=== PATIENT | male | born 1975 ===

== ENCOUNTER 2017-04-13 17:06 | Emergency (ER) | payer OTHER ==
[2017-04-13] MEDS ORDERED: Sodium Chloride 0.9% 1,000 ML IV ONE (17:54)
[2017-04-13] MEDS ORDERED: Sodium Chloride 0.9% 1,000 ML ONE (18:21)
--- NOTE | 2017-04-13 18:27 | C.PDOC ---
History Of Present Illness 41 yr old male presents to the ER for alcohol intoxication. ROS is unable to be obtained due to the level of intoxication. Time Seen by Provider: 04/13/17 17:53 Chief Complaint (Nursing): Abdominal Pain History/Exam Limitations: intoxication Onset/Duration Of Symptoms: Unknown Modifying Factor(s): Alcohol Past Medical History Reviewed: Historical Data, Nursing Documentation, Vital Signs Vital Signs: Last Vital Signs Temp 98.2 F 04/13/17 17:14 Pulse 108 H 04/13/17 17:14 Resp 20 04/13/17 17:14 BP 122/81 04/13/17 17:14 Pulse Ox 96 04/13/17 18:28 - Medical History PMH: Pancreatitis Family History: States: No Known Family Hx - Social History Hx Alcohol Use: Yes Hx Substance Use: Yes - Immunization History Hx Tetanus Toxoid Vaccination: No Hx Influenza Vaccination: No Hx Pneumococcal Vaccination: No Review Of Systems Review Of Systems: ROS cannot be obtained secondary to pt's inabilty to answer questions. Physical Exam - Physical Exam Appears: Non-toxic, No Acute Distress, Other (No signs of trauma. ) Skin: Warm, Dry, No Rash Head: Atraumatic, Normacephalic Chest: Symmetrical, No Tenderness Cardiovascular: Rhythm Regular, No Murmur Respiratory: Normal Breath Sounds, No Rales, No Rhonchi, No Stridor, No Wheezing Extremity: Normal ROM, No Swelling Neurological/Psych: Oriented x3, Normal Speech, Normal Motor ED Course And Treatment - Laboratory Results Result Diagrams: 04/13/17 18:35 04/13/17 18:35 O2 Sat by Pulse Oximetry: 96 (RA) Pulse Ox Interpretation: Normal Medical Decision Making Medical Decision Making: PLAN: * Alcohol Serum * CBC * CMP * Pepcid IVP * Zofran IVP * Sodium Chloride IV Disposition - Disposition Disposition Time: 19:00 Condition: UNKNOWN Forms: [facility] (Libyan) - Clinical Impression Clinical Impression: Alcohol intoxication - Scribe Statement The provider has reviewed the documentation as recorded by the Emmyibnicki Larios Provider Attestation: All medical record entries made by the Scribe were at my direction and personally dictated by me. I have reviewed the chart and agree that the record accurately reflects my personal performance of the history, physical exam, medical decision making, and the department course for this patient. I have also personally directed, reviewed, and agree with the discharge instructions and disposition. Physician Patient Turnover Patient Signed Over To: Esteban King
[2017-04-13 18:43] LABS: BASO % 0.7 % (0.0-2.0); EOS # 0.4 K/uL (0.0-0.7); EOS % 6.5 % (0.0-4.0); HEMOGLOBIN 16.1 g/dL (12.0-18.0); LYMPH # 1.8 K/uL (1.0-4.3); LYMPH % 32.2 % (20.0-40.0); MEAN CELL VOLUME 94.1 fL (80.0-94.0); MEAN CORPUSCULAR HEMOGLOBIN 31.8 pg (27.0-31.0); MEAN CORPUSCULAR HGB CONC 33.8 g/dL (33.0-37.0); MEAN PLATELET VOLUME 7.7 fL (7.2-11.7); MONO # 0.3 K/uL (0.0-0.8); MONO % 5.8 % (0.0-10.0); NEUT # 3.1 K/uL (1.8-7.0); NEUT % 54.8 % (50.0-75.0); RBC 5.06 Mil/uL (4.40-5.90); WHITE BLOOD COUNT 5.6 K/uL (4.8-10.8)
[2017-04-13 18:58] LABS: GFR AFRICAN-AMERICAN > 60; GFR NON-AFRICAN AMERICAN > 60
[2017-04-13 18:59] LABS: ALB/GLOB RATIO 1.3 (1.0-2.1); ALT/SGPT 48 U/L (21-72); AST/SGOT 83 U/L (17-59); BLOOD UREA NITROGEN 10 mg/dL (9-20); CALCIUM 8.3 mg/dl (8.6-10.4); LIPASE 260 U/L (23-300)
[2017-04-14 05:51] LABS: BENZODIAZEPINES, UR NEGATIVE (NEGATIVE)
[2017-04-14 05:53] LABS: BARBITURATES, UR NEGATIVE (NEGATIVE)
[2017-04-14 05:55] LABS: OPIATES, UR NEGATIVE (NEGATIVE)
[2017-04-14 05:56] LABS: PHENCYCLIDINE, UR NEGATIVE (NEGATIVE)
[2017-04-14 10:32] VITALS: BP 118/70; PULSE 82; RESP 16; TEMP 98.2; O2SAT 100
== END 2017-04-14 10:31 | disposition home or self-care (01) ==
LOC: C.ER 17:06
DX: F10.129 Alcohol abuse with intoxication, unspecified (principal); Y90.8 Blood alcohol level of 240 mg/100 ml or more
CPT/HCPCS: 80053; 83690; 85025; 96361; 96374; 96375; 99285; G0480; J2405; J7040

== ENCOUNTER 2017-05-12 01:22 | Observation (INO) | payer SELFPAY ==
[2017-05-12 01:37] VITALS: RESP 20; TEMP 98.2
[2017-05-12 02:18] LABS: BASO % 0.9 % (0.0-2.0); EOS # 0.3 K/uL (0.0-0.7); EOS % 6.8 % (0.0-4.0); LYMPH # 1.8 K/uL (1.0-4.3); LYMPH % 37.5 % (20.0-40.0); MEAN CELL VOLUME 95.4 fL (80.0-94.0); MEAN CORPUSCULAR HEMOGLOBIN 31.8 pg (27.0-31.0); MEAN CORPUSCULAR HGB CONC 33.3 g/dL (33.0-37.0); MEAN PLATELET VOLUME 7.6 fL (7.2-11.7); MONO # 0.4 K/uL (0.0-0.8); MONO % 8.8 % (0.0-10.0); NRBC % 0.1 % (0.0-2.0); RED CELL DISTRIBUTION WIDTH 14.1 % (11.5-14.5); WHITE BLOOD COUNT 4.8 K/uL (4.8-10.8)
[2017-05-12 02:33] LABS: ALB/GLOB RATIO 1.4 (1.0-2.1); ALCOHOL SERUM 264 mg/dl (0-10); ALKALINE PHOSPHATASE 88 U/L (38-126); ALT/SGPT 67 U/L (21-72); AST/SGOT 81 U/L (17-59); BILIRUBIN,TOTAL 1.3 mg/dL (0.2-1.3); BLOOD UREA NITROGEN 13 mg/dL (9-20); CALCIUM 9.6 mg/dl (8.6-10.4); CARBON DIOXIDE 24 mmol/L (22-30); CHLORIDE 101 mmol/L (98-107); GFR AFRICAN-AMERICAN > 60; GLUCOSE,RANDOM 116 mg/dL (75-110); POTASSIUM 3.8 mmol/L (3.6-5.2); SODIUM 146 mmol/L (132-148)
--- NOTE | 2017-05-12 03:14 | C.PDOC ---
History Of Present Illness 41 year old male with a Hx of chronic alcoholism and chronic cocaine abuse who presents to the ER requesting detox. Patient also reports he has been experiencing RUQ pain and is concerned for his liver. Denies vomiting, diarrhea , or fever. Time Seen by Provider: 05/12/17 01:36 Chief Complaint (Nursing): Substance Abuse History Per: Patient History/Exam Limitations: no limitations Onset/Duration Of Symptoms: Hrs Current Symptoms Are (Timing): Still Present Suicide/Self Injury Attempted (Context): None Modifying Factor(s): Alcohol, Cocaine Associated Symptoms: denies: Depression, Suicidal Thoughts, Suicidal Plan Involuntary Hold By: None Recent travel outside of the [place]: No Past Medical History Reviewed: Historical Data, Nursing Documentation, Vital Signs Vital Signs: Last Vital Signs Temp 98.2 F 05/12/17 01:29 Pulse 152 H 05/12/17 01:29 Resp 20 05/12/17 01:29 BP 134/88 05/12/17 01:29 Pulse Ox 95 05/12/17 03:21 - Medical History PMH: Pancreatitis Surgical History: No Surg Hx Family History: States: Unknown Family Hx - Social History Hx Alcohol Use: Yes Hx Substance Use: Yes - Immunization History Hx Tetanus Toxoid Vaccination: No Hx Influenza Vaccination: No Hx Pneumococcal Vaccination: No Review Of Systems Constitutional: Negative for: Fever, Chills Gastrointestinal: Positive for: Abdominal Pain. Negative for: Nausea, Vomiting , Diarrhea Physical Exam - Physical Exam Appears: Non-toxic, No Acute Distress, Other (ETOH on breath) Skin: Normal Color, Warm, Dry, No Jaundice Head: Atraumatic, Normacephalic Oral Mucosa: Moist Chest: Symmetrical, No Tenderness Cardiovascular: Rhythm Regular, No Murmur Respiratory: Normal Breath Sounds, No Rales, No Rhonchi, No Wheezing Gastrointestinal/Abdominal: Soft, Tenderness (Minimal to RUQ) Back: No CVA Tenderness Neurological/Psych: Oriented x3, Normal Speech, Normal Cognition ED Course And Treatment - Laboratory Results Result Diagrams: 05/12/17 02:14 05/12/17 02:14 O2 Sat by Pulse Oximetry: 95 (Room air) Pulse Ox Interpretation: Normal Progress Note: Urinalysis and blood work ordered. Tylenol administered. 6 AM- Pt is AAO x 3, ambulatory with normal gait. Pt now denies pain. Labs reviewed and no acute findings. No detox beds are available and pt is advised to call Crisis unit for available detox beds. Disposition Counseled Patient/Family Regarding: Diagnosis, Need For Followup, Rx Given - Disposition Disposition: HOME/ ROUTINE Disposition Time: 06:01 Condition: STABLE Additional Instructions: Please Call Crisis at [phone] for available detox beds Return to ER if worse Instructions: Abuse of Alcohol (ED) Forms: [facility] (Estonian) - Clinical Impression Clinical Impression: Alcohol intoxication - Scribe Statement The provider has reviewed the documentation as recorded by the Scribnicki Montemayor All medical record entries made by the Emmyibnicki were at my direction and personally dictated by me. I have reviewed the chart and agree that the record accurately reflects my personal performance of the history, physical exam, medical decision making, and the department course for this patient. I have also personally directed, reviewed, and agree with the discharge instructions and disposition.
[2017-05-12 06:12] VITALS: BP 142/86; PULSE 78; O2SAT 99
== END 2017-05-12 06:09 | disposition home or self-care (01) ==
LOC: C.ER 01:22 → C.9OBSV 03:35
PROVIDERS: ADMIT Emergency Medicine; ATTEND Emergency Medicine
DX: F10.229 Alcohol dependence with intoxication, unspecified (principal); F14.10 Cocaine abuse, uncomplicated; R10.11 Right upper quadrant pain; Z87.19 Personal history of other diseases of the digestive system
CPT/HCPCS: 80053; 83690; 85025; 99283; G0378; G0480

== ENCOUNTER 2018-05-21 19:08 | Inpatient (IN) | payer MEDICAID ==
--- NOTE | 2018-05-21 20:11 | C.PDOC ---
History Of Present Illness Patient presents to the ER requesting detox from ETOH and cocaine, last use was earlier today. Denies suicidal or homicidal ideation. Time Seen by Provider: 05/21/18 20:11 Chief Complaint (Nursing): Substance Abuse History Per: Patient History/Exam Limitations: no limitations Onset/Duration Of Symptoms: Hrs Current Symptoms Are (Timing): Still Present Suicide/Self Injury Attempted (Context): None Modifying Factor(s): Alcohol, Cocaine Severity: None Pain Scale Rating Of: 0 Associated Symptoms: denies: Suicidal Thoughts, Other (Homicidal ideation) Involuntary Hold By: None Recent travel outside of the [place]: No Past Medical History Reviewed: Historical Data, Nursing Documentation, Vital Signs Vital Signs: Last Vital Signs Temp 98.4 F 05/21/18 19:36 Pulse 83 05/21/18 19:36 Resp 16 05/21/18 19:36 BP 116/68 05/21/18 19:36 Pulse Ox 97 05/21/18 20:32 - Medical History PMH: Hiatal Hernia, Pancreatitis Denies: Diabetes, Hepatitis, HIV, HTN, Seizures, Sexually Transmitted Disease Family History: States: No Known Family Hx - Social History Hx Alcohol Use: Yes Hx Substance Use: Yes - Immunization History Hx Tetanus Toxoid Vaccination: No Hx Influenza Vaccination: No Hx Pneumococcal Vaccination: No Review Of Systems Constitutional: Negative for: Fever, Chills Cardiovascular: Negative for: Chest Pain, Palpitations Respiratory: Negative for: Cough, Shortness of Breath Gastrointestinal: Negative for: Abdominal Pain Psych: Negative for: Suicidal ideation, Other (Homicidal ideation) Physical Exam - Physical Exam Appears: Non-toxic Skin: Warm, Dry Head: Normacephalic Oral Mucosa: Moist Chest: Symmetrical, No Tenderness Cardiovascular: Rhythm Regular Respiratory: No Rales, No Rhonchi, No Wheezing Gastrointestinal/Abdominal: Soft, No Tenderness Neurological/Psych: Oriented x3 ED Course And Treatment - Laboratory Results Result Diagrams: 05/21/18 22:12 05/21/18 22:12 O2 Sat by Pulse Oximetry: 97 (Room air) Pulse Ox Interpretation: Normal Progress Note: Blood work and urinalysis ordered. Crisis notified. Disposition Discussed With : Sapna Alfredo Comment: accepted the pt on her service and took over the care at 11:08 PM Doctor Will See Patient In The: Hospital Counseled Patient/Family Regarding: Studies Performed, Diagnosis - Disposition Disposition: HOSPITALIZED Disposition Time: 20:11 Condition: FAIR Forms: [facility] (Malian) - POA Present On Arrival: None - Clinical Impression Clinical Impression: Drug abuse, Alcohol use disorder - Scribe Statement The provider has reviewed the documentation as recorded by the Scribe Fernandez Montemayor All medical record entries made by the Scribe were at my direction and personally dictated by me. I have reviewed the chart and agree that the record accurately reflects my personal performance of the history, physical exam, medical decision making, and the department course for this patient. I have also personally directed, reviewed, and agree with the discharge instructions and disposition. Decision To Admit - Pt Status Changed To: Hospital Disposition Of: Inpatient - Admit Certification Admit to Inpatient:: After my assessment, the patient will require hospitalization for at least two midnights. This is because of the severity of symptoms shown, intensity of services needed, and/or the medical risk in this patient being treated as an outpatient. - InPatient: Physician Admission Certification: I certify that this patient requires 2 or more midnights of care for the following reason:: After my assessment, the patient will require hospitalization for at least two midnights. This is because of the severity of symptoms shown, intensity of services needed, and/or the medical risk in this patient being treated as an outpatient. - . Bed Request Type: Detox Admitting Physician: Sapna Alfredo Patient Diagnosis: Drug abuse, Alcohol use disorder
[2018-05-21 22:16] LABS: BASO % 0.7 % (0.0-2.0); EOS # 0.4 K/uL (0.0-0.7); EOS % 10.1 % (0.0-4.0); HEMOGLOBIN 15.6 g/dL (12.0-18.0); LYMPH # 1.8 K/uL (1.0-4.3); LYMPH % 39.4 % (20.0-40.0); MEAN CELL VOLUME 97.4 fL (80.0-94.0); MEAN CORPUSCULAR HEMOGLOBIN 33.8 pg (27.0-31.0); MEAN CORPUSCULAR HGB CONC 34.8 g/dL (33.0-37.0); MEAN PLATELET VOLUME 6.8 fL (7.2-11.7); MONO # 0.3 K/uL (0.0-0.8); MONO % 6.3 % (0.0-10.0); NEUT # 1.9 K/uL (1.8-7.0); NEUT % 43.5 % (50.0-75.0); NRBC % 0.1 % (0.0-2.0); RBC 4.6 Mil/uL (4.40-5.90); WHITE BLOOD COUNT 4.5 K/uL (4.8-10.8)
[2018-05-21 22:19] LABS: SQUAMOUS EPITHIAL 1 /hpf (0-5); URINE BILIRUBIN NEGATIVE (NEGATIVE); URINE CLARITY Clear (Clear); URINE COLOR Straw (YELLOW); URINE GLUCOSE (UA) NORMAL (Normal); URINE LEUKOCYTE ESTERASE NEG Leu/uL (Negative); URINE PROTEIN NEGATIVE (NEGATIVE); URINE UROBILINOGEN NORMAL mg/dL (0.2-1.0)
[2018-05-21 22:27] LABS: URINE BLOOD TRACE (NEGATIVE)
[2018-05-21 22:28] LABS: ALB/GLOB RATIO 1.6 (1.0-2.1)
[2018-05-21 22:32] LABS: ALBUMIN 4.9 g/dL (3.5-5.0); ALT/SGPT 28 U/L (21-72); AST/SGOT 57 U/L (17-59); BLOOD UREA NITROGEN 12 mg/dL (9-20); CALCIUM 9.3 mg/dl (8.6-10.4); GFR NON-AFRICAN AMERICAN > 60
[2018-05-21 22:40] LABS: BARBITURATES, UR NEGATIVE (NEGATIVE); BENZODIAZEPINES, UR NEGATIVE (NEGATIVE); OPIATES, UR NEGATIVE (NEGATIVE); PHENCYCLIDINE, UR NEGATIVE (NEGATIVE)
--- NOTE | 2018-05-22 01:20 | PCM.BM ---
<Maria A Tapia - Last Filed: 05/22/18 01:20> Treatment Plan Problems - Problems identified on initial assessmt Alcohol Dependence Date Initiated: 05/22/18 Time Initiated: 01:20 Assessment reference: NA Status: Active Treatment assets and liabiliti Patient Assests: ADL independent Patient Liabilities: substance abuse - Milieu Protocol Maintain good personal hygiene: daily Encourage regular showers, daily Remind patient to perform daily oral care, daily Assist patient to perform ADL's Maintain personal safety: every shift Educate patient to report safety concerns to staff, every shift Monitor environment for contraband/sharps Medication safety: Monitor for expected outcome, potential side effects: every shift, Assess barriers to learning: every shift, Assess readiness for medication education: every shift <Darling Garcia - Last Filed: 05/23/18 12:44> - Diagnosis (1) Alcohol use disorder Status: Acute Interventions: 05/23/18 12:43 * Assess 7x/week regarding severity of withdrawal * Educate regarding risks, benefits, side effects and alternatives of medications * Use Motivational Interviewing for abstinence * Use CBT for relapse prevention * Medication management for withdrawal symptoms * Encourage medication assisted treatment *
[2018-05-22] MEDS: Pantoprazole 20 mg EC Tab PO SCH (09:56)
[2018-05-22] MEDS: Multiple Vitamins Tab PO SCH (09:56)
--- NOTE | 2018-05-22 16:15 | PCM.PSYCH ---
Initial Psychiatric Evaluation - Initial Psychiatric Evaluation Type of Admission: Voluntary Legal Status: Capacity Chief Complaint (in patient's own words): Im drinking a lot History of Present Illness and Precipitating Events: Pt is a 39 y/o LM who is single and currently homeless and unemployed. Pt does not have any children. Pt came into the [facility] yesterday seeking detox for EtOH. Pt began drinking alcohol 26 years ago. Pt drinks on average a 24 pack of beer per day, last usage was 12 beers yesterday. Pt also reported of using 20grams of cocaine on Saturday but only buys cocaine when he has money. Pt cannot remember when he started sniffing cocaine but does on average 20 grams worth, last usage being 3 days ago. Pt denies hx of OD or previous detox attempts. Pt denies depressed mood, feelings of guilt, fatigue, concentration problems, decreased appetite, anhedonia, SI/HI. Pt denies racing thoughts, manic episodes. Pt denies auditory, visual or tactile hallucinations Pt denies smoking. Denies heroin, benzo, marijuana or any other substance use. Psych Hx: unremarkable Traumatic Hx: unremarkable Family psych Hx: 2 uncles who abused alcohol Medical Hx: bilateral hernia and recurrent pancreatitis exacerbated by drinking. He still has pain and is at risk for pancreatitis. he will be monitored Legal Hx: unremarkable Current Medications: Active Medications Generic Name Dose Route Start Last Admin Trade Name Freq PRN Reason Stop Dose Admin Chlordiazepoxide 25 mg 05/22/18 10:00 05/22/18 15:54 Librium PO 05/27/18 09:59 25 mg Q6H KIRA Administration Taper Chlordiazepoxide 25 mg 05/22/18 08:58 Librium PO Q4H PRN Alcohol Withdrawal Clonidine HCl 0.1 mg 05/22/18 08:58 Catapres PO Q4H PRN Symptoms of alcohol withdrawl Folic Acid 1 mg 05/22/18 10:00 05/22/18 09:55 Folic Acid PO 1 mg DAILY KIRA Administration Gabapentin 300 mg 05/22/18 10:00 05/22/18 09:55 Neurontin PO 300 mg BID KIRA Administration Hydroxyzine HCl 50 mg 05/22/18 08:59 Atarax PO Q6H PRN Anxiety Ibuprofen 600 mg 05/22/18 08:59 Motrin Tab PO Q6H PRN Pain, moderate (4-7) Multivitamins 1 tab 05/22/18 10:00 05/22/18 09:56 Hexavitamin PO 1 tab DAILY KIRA Administration Pantoprazole Sodium 20 mg 05/22/18 10:00 05/22/18 09:56 Protonix Ec Tab PO 20 mg DAILY KIRA Administration Thiamine HCl 100 mg 05/22/18 10:00 05/22/18 09:56 Vitamin B1 Tab PO 100 mg DAILY KIRA Administration Trazodone HCl 100 mg 05/22/18 22:00 Desyrel PO HS KIRA Past Psychiatric History - Past Psychiatric History Previous Treatment History: None Pertinent Medical Hx (Current Medical&Sleep Prob, Allergies): Allergies Allergy/AdvReac Type Severity Reaction Status Date / Time aspirin Allergy Verified 05/21/18 19:41 seafood Allergy Uncoded 05/21/18 19:41 No Known Home Med 04/13/17 Review of Systems - Psychiatric Psychiatric: Abnormal Sleep Pattern, Anxiety, Difficulty Concentrating, Irritability. absent: Auditory Hallucinations, Depression, Hallucinations, Homicidal Ideation, Suicidal Ideation, Visual Hallucinations, Tactile Hallucinations Mental Status Examination - Personal Presentation Personal Presentation: Looks stated age - Affect Affect: Broad - Motor Activity Motor Activity: Calm - Reliability in Providing Information Reliability in Providing Information: Good - Speech Speech: Organized - Mood Mood: Neutral - Formal Thought Process Formal Thought Process: No Impairment - Obsessions/Compulsions Obsessions: No Compulsions: No - Cognitive Functions Orientation: Person, Place, Situation, Time Sensorium: Alert Attention/Concentration: Easily distracted Estimate of Intelligence: Average Judgement: Intact, as evidence by: Insight regarding need for hospitalization Memory: Recent intact, as evidence by: Ability to recall events of the day, Remote intact, as evidenced by: Abilit to recall sig. life events - Risk Risk: Seizure, Withdrawal, Diminished functioning - Strength & Assets Inventory Strength & Assets Inventory: Cooperative - Limitations Limitations: Living alone DSM 5 DX - DSM 5 DSM 5 Diagnosis: EtOH use disorder, severe EtOH withdrawal Cocaine use disorder, moderate - Recommended/Plan of Treatment Treatment Recommendations and Plan of Treatment: start Librium taper for EtOH detox As need medications All risks, benefits and alternatives of the meds discussed, and the pt agreed and understood.~ Attend groups and activities Individual therapy daily Psychoeducation and support daily Encourage compliance with meds and after care Refer to outpatient program~ Teach healthy lifestyle methods, i.e. diet, exercise, meditation 32 min Projected ELOS: 4-5 days Prognosis: good w treatment - Smoking Cessation Smoking Cessation Initiated: Yes
[2018-05-23] MEDS: Multiple Vitamins Tab PO SCH (09:37)
[2018-05-23] MEDS: Pantoprazole 20 mg EC Tab PO SCH (09:37)
--- NOTE | 2018-05-23 14:16 | PCM.PYCHPN ---
Psychiatric Progress Note - Psychiatric Progress Note Patient seen today, length of contact: 16 min Patient Chief Complaint: Im anxious" Problems Identified/Issues Discussed: The pt is seen, chart reviewed, case discussed with staff. The pt is compliant with medications and reports no side-effects. Symptoms are improving but needs more time to stabilize. Pt attends groups and activities. Support given, psycho-education provided. After care discussed. Medication Change: Yes (detox changes daily) Medical Record Reviewed: Yes Mental Status Examination - Cognitive Function Orientation: Person, Place, Situation, Time Memory: Intact Attention: WNL Concentration: Poor Association: WNL Fund of Knowledge: WNL - Mood Mood: Neutral - Affect Affect: Broad - Speech Speech: Appropriate - Formal Thought Process Formal Thought Process: No Impairment - Suicidal Ideation Suicidal Ideation: No - Homicidal Ideation Homicidal Ideation: No Goal/Treatment Plan - Goal/Treatment Plan Need for Continued Stay: Discharge may exacerbated symptoms, Severe functional impairment Progress Toward Problem(s) and Goals/Treatment Plan: Librium taper for EtOH detox As need medications All risks, benefits and alternatives of the meds discussed, and the pt agreed and understood.~ Attend groups and activities Individual therapy daily Psychoeducation and support daily Encourage compliance with meds and after care Refer to outpatient program~ Teach healthy lifestyle methods, i.e. diet, exercise, meditation
[2018-05-24] MEDS: Pantoprazole 20 mg EC Tab PO SCH (09:19)
[2018-05-24] MEDS: Multiple Vitamins Tab PO SCH (10:11)
--- NOTE | 2018-05-24 16:53 | PCM.PYCHPN ---
Psychiatric Progress Note - Psychiatric Progress Note Patient seen today, length of contact: 16 min Patient Chief Complaint: Im better" Problems Identified/Issues Discussed: The pt is seen, chart reviewed, case discussed with staff. Support and psychoeducation given, CBT and OK used briefly No new symptoms reported, improving slowly and needs more time No SEs from medications, risks discussed. After care discussed Medication Change: Yes (detox changes daily) Medical Record Reviewed: Yes Mental Status Examination - Cognitive Function Orientation: Person, Place, Situation, Time Memory: Intact Attention: WNL Concentration: Poor Association: WNL Fund of Knowledge: WNL - Mood Mood: Neutral - Affect Affect: Broad - Speech Speech: Appropriate - Formal Thought Process Formal Thought Process: No Impairment - Suicidal Ideation Suicidal Ideation: No - Homicidal Ideation Homicidal Ideation: No Goal/Treatment Plan - Goal/Treatment Plan Need for Continued Stay: Discharge may exacerbated symptoms, Severe functional impairment Progress Toward Problem(s) and Goals/Treatment Plan: Librium taper for EtOH detox As need medications All risks, benefits and alternatives of the meds discussed, and the pt agreed and understood.~ Attend groups and activities Individual therapy daily Psychoeducation and support daily Encourage compliance with meds and after care Refer to outpatient program~ Teach healthy lifestyle methods, i.e. diet, exercise, meditation
[2018-05-25] MEDS: Multiple Vitamins Tab PO SCH (09:17)
[2018-05-25] MEDS: Pantoprazole 20 mg EC Tab PO SCH (09:17)
--- NOTE | 2018-05-25 09:28 | PCM.PYCHPN ---
Psychiatric Progress Note - Psychiatric Progress Note Patient seen today, length of contact: 16 min Medication Change: Yes (detox changes daily) Medical Record Reviewed: Yes Mental Status Examination - Cognitive Function Orientation: Person, Place, Situation, Time Memory: Intact Attention: WNL Concentration: Poor Association: WNL Fund of Knowledge: WNL - Mood Mood: Neutral - Affect Affect: Broad - Speech Speech: Appropriate - Formal Thought Process Formal Thought Process: No Impairment - Suicidal Ideation Suicidal Ideation: No - Homicidal Ideation Homicidal Ideation: No Goal/Treatment Plan - Goal/Treatment Plan Need for Continued Stay: Discharge may exacerbated symptoms, Severe functional impairment Progress Toward Problem(s) and Goals/Treatment Plan: EtOH use disorder, severe EtOH withdrawal Cocaine use disorder, moderate start Librium taper for EtOH detox As need medications All risks, benefits and alternatives of the meds discussed, and the pt agreed and understood.~ Attend groups and activities Individual therapy daily Psychoeducation and support daily Encourage compliance with meds and after care Refer to outpatient program~ Teach healthy lifestyle methods, i.e. diet, exercise, meditation
[2018-05-26 08:50] VITALS: BP 114/65; PULSE 98; RESP 18; TEMP 97.7; O2SAT 97
--- NOTE | 2018-05-26 08:50 | PCM.PYCHDC ---
Mental Status Examination - Mental Status Examination Orientation: Person Discharge Summary - Discharge Note Consultations:: List each consultation separately and include: 1. Reason for request. 2. Findings. 3. Follow-up Summary of Hospital Course include:: 1. Description of specific treatment plan utilized for patients during their course of treatmen. 2. Summarize the time- course for resolution of acute symptoms and/or regressed behaviors. 3. Describe issues identified and worked on during hospitalization. 4. Describe medication utilized. 5. Describe medical problems identified and treated. 6. Reassessment of suicide risk Summary of Hospital Course: Pt is a 39 y/o LM who is single and currently homeless and unemployed. Pt does not have any children. Pt came into the [facility] yesterday seeking detox for EtOH. Pt began drinking alcohol 26 years ago. Pt drinks on average a 24 pack of beer per day, last usage was 12 beers yesterday. Pt also reported of using 20grams of cocaine on Saturday but only buys cocaine when he has money. Pt cannot remember when he started sniffing cocaine but does on average 20 grams worth, last usage being 3 days ago. Pt denies hx of OD or previous detox attempts. Pt denies depressed mood, feelings of guilt, fatigue, concentration problems, decreased appetite, anhedonia, SI/HI. Pt denies racing thoughts, manic episodes. Pt denies auditory, visual or tactile hallucinations Pt denies smoking. Denies heroin, benzo, marijuana or any other substance use. Psych Hx: unremarkable Traumatic Hx: unremarkable Family psych Hx: 2 uncles who abused alcohol Medical Hx: bilateral hernia and recurrent pancreatitis exacerbated by drinking. He still has pain and is at risk for pancreatitis. he will be monitored Legal Hx: unremarkable He went to [facility] rehab. - Diagnosis (1) Alcohol use disorder Current Visit: Yes Status: Acute - Final Diagnosis (DSM 5) Condition upon Discharge: FAIR Disposition: HOME/ ROUTINE Follow-up Treatment Plan: Librium taper for EtOH detox As need medications All risks, benefits and alternatives of the meds discussed, and the pt agreed and understood.~ Attend groups and activities Individual therapy daily Psychoeducation and support daily Encourage compliance with meds and after care Refer to outpatient program~ Teach healthy lifestyle methods, i.e. diet, exercise, meditation Prescriptions/Medication Reconciliation: Pantoprazole [Protonix EC Tab] 20 mg PO DAILY #30 ect traZODone [Desyrel] 100 mg PO HS #30 tab
[2018-05-26] MEDS: Multiple Vitamins Tab PO SCH (09:09)
[2018-05-26] MEDS: Pantoprazole 20 mg EC Tab PO SCH (09:09)
== END 2018-05-26 10:45 | disposition home or self-care (01) | DRG 470 ==
LOC: C.ER 19:08 → C.7D 23:10
PROVIDERS: ADMIT Psychiatry & Neurology Psychiatry; ATTEND Psychiatry & Neurology Psychiatry
PROC: HZ2ZZZZ Detoxification Services for Substance Abuse Treatment (ICD-10-PCS; principal; 2018-05-21)
PROC: HZ59ZZZ Individual Psychotherapy for Substance Abuse Treatment, Supportive (ICD-10-PCS; 2018-05-21)
PROC: HZ46ZZZ Group Counseling for Substance Abuse Treatment, Psychoeducation (ICD-10-PCS; 2018-05-21)
DX: Y90.8 Blood alcohol level of 240 mg/100 ml or more (principal); F14.20 Cocaine dependence, uncomplicated; F10.230 Alcohol dependence with withdrawal, uncomplicated; K86.0 Alcohol-induced chronic pancreatitis; Z59.0 Homelessness

== ENCOUNTER 2018-06-05 00:17 | Inpatient (IN) | payer MEDICAID ==
--- NOTE | 2018-06-05 00:45 | C.PDOC ---
History Of Present Illness 42 y/o male with hx etoh abuse, presents to ED with swelling and pain to left lower leg. pt seen in ED on 05.30 for left knee and ankle pain s/p fall with abrasions on both knees from a fall prior to that. pt denies fevers. pt denies drinking today. pt is poor historian. Time Seen by Provider: 06/05/18 00:33 Chief Complaint (Nursing): Abnormal Skin Integrity History Per: Patient History/Exam Limitations: intoxication Current Symptoms Are (Timing): Worse Location Of Injury: Left: Leg Quality Of Symptoms: Painful, Swollen Severity: Moderate Past Medical History Reviewed: Historical Data, Nursing Documentation, Vital Signs Vital Signs: Last Vital Signs Temp 97.8 F 06/05/18 00:25 Pulse 110 H 06/05/18 00:25 Resp 20 06/05/18 00:25 BP 126/82 06/05/18 00:25 Pulse Ox 97 06/05/18 00:25 - Medical History PMH: Hiatal Hernia, Pancreatitis Denies: Diabetes, Hepatitis, HIV, HTN, Seizures, Sexually Transmitted Disease Other PMH: alcohol abuse - [facility] Procedures DETOXIFICATION SERVICES FOR SUBSTANCE ABUSE TREATMENT (05/21/18) GROUP HUMAN RESOURCES ASSISTANT MANAGER FOR SUBSTANCE ABUSE TREATMENT, PSYCHOEDUCATION (05/21/18) INDIV PSYCHOTHERAPY FOR SUBSTANCE ABUSE TREATMENT, SUPPORT (05/21/18) Family History: States: Unknown Family Hx - Social History Hx Alcohol Use: Yes Hx Substance Use: No - Immunization History Hx Tetanus Toxoid Vaccination: Yes (6 years) Hx Influenza Vaccination: No Hx Pneumococcal Vaccination: No Review Of Systems Constitutional: Negative for: Fever, Chills Cardiovascular: Negative for: Chest Pain Respiratory: Negative for: Cough, Shortness of Breath Gastrointestinal: Negative for: Nausea, Vomiting, Abdominal Pain Skin: Positive for: Bruising (left medial knee), Other (scabs bilteral anterior tibia) Neurological: Negative for: Weakness, Numbness Physical Exam - Physical Exam Appears: Non-toxic, No Acute Distress Skin: Warm, Dry, Ecchymosis (left medial knee), Other (scabs to both anterior tibia) Head: Atraumatic, Normacephalic Eye(s): bilateral: Normal Inspection (small but reactibe) Cardiovascular: Other (tachycardic) Respiratory: No Decreased Breath Sounds, No Wheezing Gastrointestinal/Abdominal: Bowel Sounds, Soft, No Tenderness Extremity: Other (left lower ext with swelling and warmth to knee, with likely suprapatellar effusion, able to flex knee. warmth and pitting edema extending all along [place] to foot. bilateral feet with moist, malodorous white cracked skin between all toes and to soles of feet. ) Pulses: Left Dorsalis Pedis: Normal, Right Dorsalis Pedis: Normal Neurological/Psych: Oriented x3, Normal Speech, Normal Cognition ED Course And Treatment - Laboratory Results Result Diagrams: 06/05/18 01:05 06/05/18 01:05 O2 Sat by Pulse Oximetry: 97 Medical Decision Making Medical Decision Making: pt with etoh abuse with cellullitis to left lower leg with overlying fungal infection for admission for iv antiboitcs. discussed with Dr Lora, will admit to his service. , [phone] Lora at [phone]; several pages to medical biller made; await call back [phone] resident aware to see patientr Disposition Discussed With DrAna: Josue Lora Jr. Doctor Will See Patient In The: Hospital - Disposition Disposition: HOSPITALIZED Disposition Time: 03:03 Condition: GOOD - Clinical Impression Clinical Impression: Cellulitis of left lower leg, Fungal infection of foot, Alcohol intoxication
[2018-06-05 01:15] LABS: BASO % 0.5 % (0.0-2.0); EOS # 0.4 K/uL (0.0-0.7); EOS % 5.1 % (0.0-4.0); HEMOGLOBIN 15.1 g/dL (12.0-18.0); LYMPH # 1.7 K/uL (1.0-4.3); LYMPH % 19.7 % (20.0-40.0); MEAN CELL VOLUME 97.1 fL (80.0-94.0); MEAN CORPUSCULAR HEMOGLOBIN 33.1 pg (27.0-31.0); MEAN CORPUSCULAR HGB CONC 34.1 g/dL (33.0-37.0); MEAN PLATELET VOLUME 7.1 fL (7.2-11.7); MONO # 0.6 K/uL (0.0-0.8); MONO % 6.9 % (0.0-10.0); NEUT # 5.8 K/uL (1.8-7.0); NEUT % 67.8 % (50.0-75.0); RBC 4.57 Mil/uL (4.40-5.90); RED CELL DISTRIBUTION WIDTH 15.6 % (11.5-14.5); WHITE BLOOD COUNT 8.5 K/uL (4.8-10.8)
[2018-06-05 01:32] LABS: ALB/GLOB RATIO 1.6 (1.0-2.1); ALBUMIN 4.8 g/dL (3.5-5.0); ALT/SGPT 41 U/L (21-72); AST/SGOT 82 U/L (17-59); BLOOD UREA NITROGEN 17 mg/dL (9-20); GFR NON-AFRICAN AMERICAN > 60
[2018-06-05] MEDS ORDERED: Piperacillin/Tazobact 3.375 GM in Sodium Chloride 100 ML IVPB STA (01:46)
[2018-06-05] MEDS ORDERED: Piperacillin/Tazobact 3.375 gm 100 ML IVPB ONE (02:45)
[2018-06-05 04:03] LABS: GRANULAR CAST 8 /lpf (0-1); SQUAMOUS EPITHIAL < 1 /hpf (0-5); URINE BILIRUBIN NEGATIVE (NEGATIVE); URINE BLOOD 1+ (NEGATIVE); URINE CLARITY Clear (Clear); URINE COLOR Yellow (YELLOW); URINE GLUCOSE (UA) NORMAL (Normal); URINE HYALINE CAST 0-2 /lpf (0-2); URINE LEUKOCYTE ESTERASE NEG Leu/uL (Negative); URINE PROTEIN NEGATIVE (NEGATIVE); URINE UROBILINOGEN NORMAL mg/dL (0.2-1.0)
[2018-06-05 04:11] LABS: BARBITURATES, UR NEGATIVE (NEGATIVE); OPIATES, UR NEGATIVE (NEGATIVE); PHENCYCLIDINE, UR NEGATIVE (NEGATIVE)
[2018-06-05 04:36] LABS: BENZODIAZEPINES, UR POSITIVE (NEGATIVE)
[2018-06-05] MEDS ORDERED: Bacitracin 500 Units/gm Oint Foilpak UD TOP ONE (04:52)
--- NOTE | 2018-06-05 04:52 | CP.PCM.HP ---
History of Present Illness - History of Present Illness History of Present Illness: History and Physical - Dr Lora Service CC: Left Knee pain HPI: Patient is a 42 year old male with past medical history of alcohol abuse, pancreatitis, hernia who presents to the hospital for worsening left knee pain. Patient is a poor historian. Patient states that last Saturday he was playing basketball when he fell. He was seen in the ED on 05/30/18 and Left knee and Left ankle x rays were negative for any fractures. Patient states that his left knee pain has been progressively getting worse for the past two days. He al so reports swelling. 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 He states that the pain has started to impair his gait. Pain is only localized to the left knee. He tried taking Motrin at home with minimal relief. He denies headaches, dizziness, cp, palpitations, sob, chest pain, abdominal pain, urinary symptoms, changes in bowel habits, numbness/tingling. ED Course: Zosyn 3.375mg IVPB x 1, Ketoconazole 2% cream Allergies: Aspirin Medications: Denies Medical History: Alcohol abuse, pancreatitis, bilateral hernia Surgical History: Denies Social History: Admits to drinking alcohol occasionally, Last drink was last Saturday, denies tobacco or drug use Family History: Denies Present on Admission - Present on Admission Any Indicators Present on Admission: No Past Patient History - Infectious Disease Hx of Infectious Diseases: None - Past Social History Smoking Status: Never Smoked - CARDIAC Hx Hypertension: No - PULMONARY Hx Tuberculosis: No - NEUROLOGICAL Hx Seizures: No - HEMATOLOGICAL/ONCOLOGICAL Hx Human Immunodeficiency Virus (HIV): No - MUSCULOSKELETAL/RHEUMATOLOGICAL Hx Falls: No - GASTROINTESTINAL Hx Pancreatitis: Yes - GENITOURINARY/GYNECOLOGICAL Hx Sexually Transmitted Disorders: No - PSYCHIATRIC Hx Substance Use: No - SURGICAL HISTORY Hx Surgeries: No - ANESTHESIA Hx Anesthesia: No Meds Allergies/Adverse Reactions: Allergies Allergy/AdvReac Type Severity Reaction Status Date / Time aspirin Allergy Verified 06/05/18 00:27 seafood Allergy Uncoded 06/05/18 00:27 Physical Exam - Constitutional Appears: No Acute Distress - Head Exam Head Exam: ATRAUMATIC, NORMAL INSPECTION, NORMOCEPHALIC - Eye Exam Eye Exam: EOMI, Normal appearance Pupil Exam: NORMAL ACCOMODATION - ENT Exam ENT Exam: Mucous Membranes Moist - Respiratory Exam Respiratory Exam: Clear to Auscultation Bilateral, NORMAL BREATHING PATTERN. absent: Rales, Rhonchi, Wheezes - Cardiovascular Exam Cardiovascular Exam: REGULAR RHYTHM, +S1, +S2 - GI/Abdominal Exam GI & Abdominal Exam: Normal Bowel Sounds, Soft. absent: Guarding, Rebound, Rigid, Tenderness - Extremities Exam Additional comments: Left lower extremity: decreased ROM 2/2 to pain, knee is warm, tender to palpation, erythematous, edematous, bruising noted on medial aspect of knee, + healing abrasion, swelling appreciated from knee down to ankle, no calf tenderness, pedal pulses intact, sensation intact Right lower extremity: +healing abrasion, no calf tenderness, pedal pulses intact, sensation intact - Back Exam Back exam: NORMAL INSPECTION - Neurological Exam Neurological exam: Alert, CN II-XII Intact, Oriented x3 - Psychiatric Exam Psychiatric exam: Normal Affect, Normal Mood - Skin Skin Exam: Dry, Normal Color, Warm Results - Vital Signs Recent Vital Signs: Last Vital Signs Temp 97.9 F 06/05/18 03:56 Pulse 98 H 06/05/18 03:56 Resp 18 06/05/18 03:56 BP 118/74 06/05/18 03:56 Pulse Ox 97 06/05/18 04:12 - Labs Result Diagrams: 06/05/18 01:05 06/05/18 01:05 Labs: Laboratory Results - last 24 hr 06/05/18 06/05/18 06/05/18 01:05 01:05 03:49 WBC 8.5 D RBC 4.57 Hgb 15.1 Hct 44.4 MCV 97.1 H MCH 33.1 H MCHC 34.1 RDW 15.6 H Plt Count 282 MPV 7.1 L Neut % (Auto) 67.8 Lymph % (Auto) 19.7 L [place] % (Auto) 6.9 Eos % (Auto) 5.1 H Baso % (Auto) 0.5 Neut # (Auto) 5.8 Lymph # (Auto) 1.7 [place] # (Auto) 0.6 Eos # (Auto) 0.4 Baso # (Auto) 0.0 Sodium 146 Potassium 4.1 Chloride 105 Carbon Dioxide 23 Anion Gap 22 H BUN 17 Creatinine 0.9 Est GFR ( Amer) > 60 Est GFR (Non-Af Amer) > 60 Random Glucose 103 Calcium 9.0 Magnesium 1.9 Total Bilirubin 0.9 AST 82 H D ALT 41 Alkaline Phosphatase 99 Total Protein 7.9 Albumin 4.8 Globulin 3.1 Albumin/Globulin Ratio 1.6 Urine Color Yellow Urine Clarity Clear Urine pH 5.0 Ur Specific [place] 1.017 Urine Protein Negative Urine Glucose (UA) Normal Urine Ketones Negative Urine Blood 1+ H Urine Nitrate Negative Urine Bilirubin Negative Urine Urobilinogen Normal Ur Leukocyte Esterase Neg Urine WBC (Auto) 1 Urine RBC (Auto) 1 Ur Squamous Epith Cells < 1 Hyaline Casts 0-2 Granular Casts (Auto) 8 Urine Opiates Screen Urine Methadone Screen Ur Barbiturates Screen Ur Phencyclidine Scrn Ur Amphetamines Screen U Benzodiazepines Scrn U Oth Cocaine Metabols U Cannabinoids Screen Alcohol, Quantitative 289 H 06/05/18 03:49 WBC RBC Hgb Hct MCV MCH MCHC RDW Plt Count MPV Neut % (Auto) Lymph % (Auto) [place] % (Auto) Eos % (Auto) Baso % (Auto) Neut # (Auto) Lymph # (Auto) [place] # (Auto) Eos # (Auto) Baso # (Auto) Sodium Potassium Chloride Carbon Dioxide Anion Gap BUN Creatinine Est GFR ( Amer) Est GFR (Non-Af Amer) Random Glucose Calcium Magnesium Total Bilirubin AST ALT Alkaline Phosphatase Total Protein Albumin Globulin Albumin/Globulin Ratio Urine Color Urine Clarity Urine pH Ur Specific [place] Urine Protein Urine Glucose (UA) Urine Ketones Urine Blood Urine Nitrate Urine Bilirubin Urine Urobilinogen Ur Leukocyte Esterase Urine WBC (Auto) Urine RBC (Auto) Ur Squamous Epith Cells Hyaline Casts Granular Casts (Auto) Urine Opiates Screen Negative Urine Methadone Screen Negative Ur Barbiturates Screen Negative Ur Phencyclidine Scrn Negative Ur Amphetamines Screen Negative U Benzodiazepines Scrn Positive U Oth Cocaine Metabols Positive H U Cannabinoids Screen Negative Alcohol, Quantitative Assessment & Plan - Assessment and Plan (Free Text) Assessment: A/P: Patient is a 42 year old male with past medical history of alcohol abuse, pancreatitis, and hernia who presents to the emergency dept for worsening left knee pain and swelling. Left knee pain -Stable, afebrile -Left knee x ray taken, awaiting official read -Will continue Zosyn 3.375 Q6H for possible cellulitis -Knee CT, venous dopplers ordered -Motrin 600mg PO TID prn pain Alcohol Intoxication/Alcohol Abuse -Alcohol level on admission was 289 -Patient was recently admitted requesting detox from alcohol and cocaine -Per Psych note: he drinks on average 24 pack beer/day -UDS positive for cocaine and benzodiazapine -Start Folic acid, Multivitamins, Thiamine -Librium 25mg PO Q4H prn symptoms of alcohol withdrawal -CIWA protocol, seizure/aspiration precautions Elevated LFTs -AST/ALT 82/41 -Likely due to alcohol use -Continue to monitor GI/DVT ppx -Protonix 40mg IVP daily -Lovenox 40 SC daily Plan discussed with Dr Guido Caldera DO PGY-2
[2018-06-05] MEDS ORDERED: Piperacill/Tazo 3.375gm in Dex 3.375 GM/50 ML BAG IVPB SCH (07:30)
--- NOTE | 2018-06-05 07:52 | RAD ---
Date of service: 06/05/2018 PROCEDURE: Left Knee Radiographs. HISTORY: Pain. COMPARISON: None. FINDINGS: BONES: No fracture or lytic lesion appreciated. JOINTS: Mild medial femoral tibial compartment osteoarthritis. JOINT EFFUSION: Present OTHER FINDINGS: Pre patellar bone and tendon soft tissue diffuse increased density and swelling-; a concomitant prepatellar bursitis probable. IMPRESSION: Joint effusion; prepatellar bursitis probable No fracture or lytic lesion. Osteoarthrosis-mild
[2018-06-05 07:59] VITALS: RESP 20
[2018-06-05] MEDS: Piperacill/Tazo 3.375gm in Dex 3.375 GM/50 ML BAG IVPB SCH ×3 (08:13→20:07)
[2018-06-05] MEDS: Multiple Vitamins Tab PO SCH (09:49)
[2018-06-05] MEDS: Enoxaparin 40 mg Syringe SC SCH (09:49)
--- NOTE | 2018-06-05 12:41 | CT ---
Date of service: 06/05/2018. PROCEDURE: CT of the left knee. HISTORY: Pain and swelling after fall. COMPARISON: Comparison made with plain film radiographs left knee 05/31/2018 TECHNIQUE: Contiguous helical/transaxial images of the left hip were obtained. Coronal and sagittal reformats were generated.. Note that a small BB marker was placed over the area of perceived pain This CT exam was performed using one or more of the following dose reduction techniques: Automated exposure control, adjustment of the mA and/or kV according to patient size, and/or use of iterative reconstruction technique. Radiation dose: Total DLP = 367.21 mGy-cm FINDINGS: BONES: Unremarkable. No fracture or focal lesion.. Significant degenerative osteoarthritis SOFT TISSUES: There is mild prepatellar soft tissue swelling extends superiorly to just above the level of the patella and inferiorly to the level of the tibial tubercle region. Swelling extends medially over the distal distal medial femur and proximal medial tibia.. Suspect trace suprapatellar joint effusion IMPRESSION: No evidence of acute displaced fracture nor dislocation. There is mild anterior soft tissue swelling as described.. Suspect trace suprapatellar joint effusion.
[2018-06-05 14:09] LABS: BASO % 0.7 % (0.0-2.0); EOS # 0.2 K/uL (0.0-0.7); EOS % 4.1 % (0.0-4.0); HEMOGLOBIN 14.4 g/dL (12.0-18.0); LYMPH # 0.7 K/uL (1.0-4.3); LYMPH % 13.7 % (20.0-40.0); MEAN CELL VOLUME 98.1 fL (80.0-94.0); MEAN CORPUSCULAR HEMOGLOBIN 33.5 pg (27.0-31.0); MEAN CORPUSCULAR HGB CONC 34.1 g/dL (33.0-37.0); MEAN PLATELET VOLUME 7.7 fL (7.2-11.7); MONO # 0.4 K/uL (0.0-0.8); MONO % 7.7 % (0.0-10.0); NEUT # 3.8 K/uL (1.8-7.0); NEUT % 73.8 % (50.0-75.0); RBC 4.29 Mil/uL (4.40-5.90); RED CELL DISTRIBUTION WIDTH 15.5 % (11.5-14.5); WHITE BLOOD COUNT 5.1 K/uL (4.8-10.8)
[2018-06-05 14:16] LABS: PROTHROMBIN TIME 10.6 SECONDS (9.7-12.2)
[2018-06-05 14:26] LABS: ALB/GLOB RATIO 1.4 (1.0-2.1); ALBUMIN 3.9 g/dL (3.5-5.0); ALT/SGPT 36 U/L (21-72); AST/SGOT 56 U/L (17-59); BLOOD UREA NITROGEN 16 mg/dL (9-20); CALCIUM 9.4 mg/dl (8.6-10.4); GFR NON-AFRICAN AMERICAN > 60
--- NOTE | 2018-06-05 14:44 | CP.PCM.PN ---
Subjective - Date & Time of Evaluation Date of Evaluation: 06/05/18 Time of Evaluation: 14:44 - Subjective Subjective: Augustin Cohen PGY-1, Medicine progress note for Dr. Lora Objective - Vital Signs/Intake and Output Vital Signs (last 24 hours): Temp Pulse Resp BP Pulse Ox 98.1 F 102 H 20 110/63 96 06/05/18 07:57 06/05/18 07:57 06/05/18 07:57 06/05/18 07:57 06/05/18 07:57 - Medications Medications: Current Medications Chlordiazepoxide (Librium) 25 mg PO Q4H PRN PRN Reason: Alcohol Withdrawal Enoxaparin Sodium (Lovenox) 40 mg SC DAILY [facility] Last Admin: 06/05/18 09:49 Dose: 40 mg Folic Acid (Folic Acid) 1 mg PO DAILY [facility] Last Admin: 06/05/18 09:49 Dose: 1 mg Piperacillin Sod/Tazobactam Sod (Zosyn 3.375 Gm Iv Premix) 3.375 gm in 50 mls @ 100 mls/hr IVPB Q6H [facility]; Protocol Last Admin: 06/05/18 13:30 Dose: 100 mls/hr Ibuprofen (Motrin Tab) 600 mg PO TID PRN PRN Reason: Pain, moderate (4-7) Last Admin: 06/05/18 13:27 Dose: 600 mg Multivitamins (Hexavitamin) 1 tab PO DAILY [facility] Last Admin: 06/05/18 09:49 Dose: 1 tab Pantoprazole Sodium (Protonix Inj) 40 mg IVP DAILY [facility] Last Admin: 06/05/18 09:50 Dose: 40 mg Thiamine HCl (Vitamin B1 Tab) 100 mg PO DAILY [facility] Last Admin: 06/05/18 09:49 Dose: 100 mg - Labs Labs: 06/05/18 14:00 06/05/18 14:00 PT 10.6 SECONDS (9.7-12.2) 06/05/18 14:00 INR 1.0 06/05/18 14:00 APTT 39 SECONDS (21-34) H 06/05/18 14:00
[2018-06-06] MEDS: Piperacill/Tazo 3.375gm in Dex 3.375 GM/50 ML BAG IVPB SCH ×4 (02:48→19:46)
[2018-06-06 07:28] LABS: BASO % 0.7 % (0.0-2.0); EOS # 0.3 K/uL (0.0-0.7); EOS % 6.9 % (0.0-4.0); HEMOGLOBIN 15.4 g/dL (12.0-18.0); LYMPH # 0.9 K/uL (1.0-4.3); MEAN CELL VOLUME 98.1 fL (80.0-94.0); MEAN CORPUSCULAR HEMOGLOBIN 34.1 pg (27.0-31.0); MEAN CORPUSCULAR HGB CONC 34.8 g/dL (33.0-37.0); MEAN PLATELET VOLUME 8.1 fL (7.2-11.7); MONO # 0.4 K/uL (0.0-0.8); MONO % 8.6 % (0.0-10.0); NEUT # 2.9 K/uL (1.8-7.0); NEUT % 64.8 % (50.0-75.0); NRBC % 0.1 % (0.0-2.0); RBC 4.52 Mil/uL (4.40-5.90); RED CELL DISTRIBUTION WIDTH 15.3 % (11.5-14.5); WHITE BLOOD COUNT 4.5 K/uL (4.8-10.8)
[2018-06-06 07:53] LABS: ALB/GLOB RATIO 1.4 (1.0-2.1); ALT/SGPT 38 U/L (21-72); AST/SGOT 57 U/L (17-59); BLOOD UREA NITROGEN 12 mg/dL (9-20); CALCIUM 9.3 mg/dl (8.6-10.4); GFR NON-AFRICAN AMERICAN > 60
[2018-06-06] MEDS: Enoxaparin 40 mg Syringe SC SCH (09:58)
[2018-06-06] MEDS: Multiple Vitamins Tab PO SCH (09:58)
--- NOTE | 2018-06-06 12:13 | VASCLAB ---
Date of service: 06/05/2018 PROCEDURE: Lower Extremity Venous Duplex Exam. HISTORY: r/o DVT PRIORS: None. TECHNIQUE: Bilateral common femoral, femoral, popliteal and posterior tibial, peroneal and great saphenous veins were evaluated. Flow was assessed with color Doppler, compressibility, assessment of phasic flow and augmentation response. Report prepared by Fernandez Castillo, BS, RVT FINDINGS: RIGHT: 1. Common Femoral Vein: 1.1. Compressibility - Fully compressible: Thrombus - None : Flow - Phasic: Augmentation -Normal: Reflux - None. 2. Femoral Vein: 2.1. Compressibility - Fully compressible: Thrombus - None : Flow - Phasic: Augmentation -Normal: Reflux - None. 3. Popliteal Vein: 3.1. Compressibility - Fully compressible: Thrombus - None : Flow - Phasic: Augmentation -Normal: Reflux - None. 4. Posterior Tibial Vein: 4.1. Compressibility - Fully compressible: Thrombus - None: Flow - Phasic: Augmentation -Normal: Reflux - None. 5. Peroneal Vein: 5.1. Compressibility - Fully compressible: Thrombus - None: Flow - Phasic: Augmentation -Normal: Reflux - None. 6. Great Saphenous Vein: 6.1. Compressibility - Fully compressible: Thrombus - None: Flow - Phasic: Augmentation - Normal: Reflux - None. LEFT: 1. Common Femoral Vein: 1.1. Compressibility - Fully compressible: Thrombus - None: Flow - Phasic: Augmentation -Normal: Reflux - None. 2. Femoral Vein: 2.1. Compressibility - Fully compressible: Thrombus - None: Flow - Phasic: Augmentation -Normal: Reflux - None. 3. Popliteal Vein: 3.1. Compressibility - Fully compressible: Thrombus - None : Flow - Phasic: Augmentation -Normal: Reflux - None. 4. Posterior Tibial Vein: 4.1. Compressibility - Fully compressible: Thrombus - None: Flow - Phasic: Augmentation -Normal: Reflux - None. 5. Peroneal Vein: 5.1. Compressibility - Fully compressible: Thrombus - None: Flow - Phasic: Augmentation -Normal: Reflux - None. 6. Great Saphenous Vein: 6.1. Compressibility - Fully compressible: Thrombus - None: Flow - Phasic: Augmentation - Normal: Reflux - None. OTHER FINDINGS: Right: None significant. Left: None significant. IMPRESSION: Right: No evidence of deep or superficial vein thrombosis of the right lower extremity. Normal valve function noted of the right side. Left: No evidence of deep or superficial vein thrombosis of the left lower extremity. Normal valve function noted of the left side.
--- NOTE | 2018-06-06 13:29 | CP.PCM.PN ---
Subjective - Date & Time of Evaluation Date of Evaluation: 06/06/18 Time of Evaluation: 13:28 - Subjective Subjective: Augustin Cohen PGY-1, Medicine progress note for Dr. Lora Pt seen and examined at bedside. Pt reports that his left knee pain is impro ving, reports resolution of left ankle pain. No acute events overnight. Pt reports that he has been had 6 episodes of brown liquid stool for over th epast 24 hours, nonbloody, nonbililous. Pt denies fever, chills, dizziness, weakness, chest pain, sob, abdominal pain, n/v. A 12-point ROS was reviewed and is otherwise unremarkable Objective - Vital Signs/Intake and Output Vital Signs (last 24 hours): Temp Pulse Resp BP Pulse Ox 98.6 F 81 20 130/56 L 95 06/06/18 08:00 06/06/18 08:00 06/06/18 08:00 06/06/18 08:00 06/06/18 10:00 Intake and Output: 06/06/18 06/06/18 06:59 18:59 Intake Total 1040 Balance 1040 - Medications Medications: Current Medications Chlordiazepoxide (Librium) 25 mg PO Q4H PRN PRN Reason: Alcohol Withdrawal Enoxaparin Sodium (Lovenox) 40 mg SC DAILY [facility] Last Admin: 06/06/18 09:58 Dose: 40 mg Folic Acid (Folic Acid) 1 mg PO DAILY [facility] Last Admin: 06/06/18 09:59 Dose: 1 mg Piperacillin Sod/Tazobactam Sod (Zosyn 3.375 Gm Iv Premix) 3.375 gm in 50 mls @ 100 mls/hr IVPB Q6H [facility]; Protocol Last Admin: 06/06/18 08:54 Dose: 100 mls/hr Ibuprofen (Motrin Tab) 600 mg PO TID PRN PRN Reason: Pain, moderate (4-7) Last Admin: 06/05/18 13:27 Dose: 600 mg Multivitamins (Hexavitamin) 1 tab PO DAILY [facility] Last Admin: 06/06/18 09:58 Dose: 1 tab Pantoprazole Sodium (Protonix Inj) 40 mg IVP DAILY [facility] Last Admin: 06/06/18 09:57 Dose: 40 mg Pneumococcal Polyvalent Vaccine (Pneumovax 23 Vaccine) 0.5 ml IM .ONCE ONE Stop: 06/07/18 10:01 Thiamine HCl (Vitamin B1 Tab) 100 mg PO DAILY [facility] Last Admin: 06/06/18 09:59 Dose: 100 mg - Labs Labs: 06/06/18 06:51 06/06/18 06:51 PT 10.6 SECONDS (9.7-12.2) 06/05/18 14:00 INR 1.0 06/05/18 14:00 APTT 39 SECONDS (21-34) H 06/05/18 14:00 - Constitutional Appears: Non-toxic, No Acute Distress - Head Exam Head Exam: ATRAUMATIC, NORMAL INSPECTION - Eye Exam Eye Exam: EOMI, Normal appearance - ENT Exam ENT Exam: Mucous Membranes Moist - Neck Exam Neck Exam: Normal Inspection - Respiratory Exam Respiratory Exam: Clear to Ausculation Bilateral, NORMAL BREATHING PATTERN. absent: Rales, Rhonchi, Wheezes, Respiratory Distress - Cardiovascular Exam Cardiovascular Exam: REGULAR RHYTHM, +S1, +S2 - GI/Abdominal Exam GI & Abdominal Exam: Soft, Normal Bowel Sounds. absent: Distended, Firm, Guardi ng, Rigid, Tenderness - Extremities Exam Extremities Exam: Normal Capillary Refill. absent: Calf Tenderness, Full ROM (Left lower extremity: decreased ROM 2/2 to pain) Additional comments: (-) tremors on outstretched hands Left lower extremity: (+) moderate tendernous to palpation, erythematous, wth ecchymosis to the medial aspect of the knee, edematous; (+) healing abrasion, swelling extends slightly behind the knee, but not involving mid [place] or mid thigh (-) calf tenderness, (+) pedal pulse intact, (+) decreased sensation at the areas of swelling, (-) pallor, (-) cold to touch Right lower extremity: (+) healing abrasion, no calf tenderness, pedal pulse intact, sensation intact - Back Exam Back Exam: NORMAL INSPECTION - Neurological Exam Neurological Exam: Alert, Normal Gait, Oriented x3 - Psychiatric Exam Psychiatric exam: Normal Affect, Normal Mood - Skin Skin Exam: Dry, Normal Color, Warm Assessment and Plan - Assessment and Plan (Free Text) Assessment: This is a 42 year old male with past medical history of alcohol abuse, pancreatitis, and hernia who presents to the emergency dept for worsening left knee pain and swelling. Left knee pain - Pain is improving, afebrile - Left knee x ray shows joint effusion, prepatellar bursitis probable. No fract ure or lytic lesion. Mild osteoarthritis. - Will continue Zosyn 3.375 Q6H for possible cellulitis - will discontinue zosyn on discharge and start Doxycycline 100 mg BID for 10 days - Pt given 1 dose of Vancomycin 1g IVPB yesterday - Knee CT is read as no evidence of acute displaced fracture nor dislocation There is mild anterior soft tissue swelling (see report). Suspect trace suprapatellar joint effusion. - Bilateral venous doppler studies are show no evidence of superficial or deep vein thrombosis. - Motrin 600mg PO TID prn pain Alcohol Intoxication/Alcohol Abuse - pt has not had tremors during admission, and has not needed librium - Alcohol level on admission was 289 - Patient was recently admitted requesting detox from alcohol and cocaine - Per Psych note: he drinks on average 24 pack beer/day - UDS positive for cocaine and benzodiazapine - Start Folic acid, Multivitamins, Thiamine - Librium 25mg PO Q4H prn symptoms of alcohol withdrawal - CIWA protocol, seizure/aspiration precautions Transaminitis (resolved) - Likely due to alcohol use - Continue to monitor GI/DVT ppx - Protonix 40mg IVP daily - Lovenox 40 SC daily Dispo: Plan to discharge tomorrow morning with Doxycycline 100 mg BID x 10 days. Pt was instructed on how to take the antibiotics, and to apply ice to the area to reduce swelling. Pt informed of the need to follow up with PMD or Dr. Lora, pt agrees and understands. Case was reviewed and discussed with attending physician, Dr. Lora All medical management as per Dr. Guido Cohen PGY-1
[2018-06-07 01:21] VITALS: O2SAT 98
[2018-06-07] MEDS: Piperacill/Tazo 3.375gm in Dex 3.375 GM/50 ML BAG IVPB SCH ×2 (03:00→08:41)
[2018-06-07 06:44] LABS: BASO % 0.4 % (0.0-2.0); EOS # 0.3 K/uL (0.0-0.7); EOS % 5.4 % (0.0-4.0); HEMOGLOBIN 15.7 g/dL (12.0-18.0); LYMPH # 1.1 K/uL (1.0-4.3); LYMPH % 18.7 % (20.0-40.0); MEAN CELL VOLUME 97.4 fL (80.0-94.0); MEAN CORPUSCULAR HEMOGLOBIN 33.5 pg (27.0-31.0); MEAN CORPUSCULAR HGB CONC 34.4 g/dL (33.0-37.0); MEAN PLATELET VOLUME 7.5 fL (7.2-11.7); MONO # 0.5 K/uL (0.0-0.8); MONO % 8.7 % (0.0-10.0); NEUT # 3.8 K/uL (1.8-7.0); NEUT % 66.8 % (50.0-75.0); RBC 4.7 Mil/uL (4.40-5.90); RED CELL DISTRIBUTION WIDTH 15.5 % (11.5-14.5); WHITE BLOOD COUNT 5.7 K/uL (4.8-10.8)
[2018-06-07 06:54] LABS: ALB/GLOB RATIO 1.4 (1.0-2.1); ALBUMIN 4.3 g/dL (3.5-5.0); ALT/SGPT 42 U/L (21-72); AST/SGOT 67 U/L (17-59); BLOOD UREA NITROGEN 12 mg/dL (9-20); CALCIUM 9.5 mg/dl (8.6-10.4); GFR NON-AFRICAN AMERICAN > 60
[2018-06-07 07:54] VITALS: BP 142/89; PULSE 101; TEMP 98.3
--- NOTE | 2018-06-07 08:23 | CP.PCM.DIS ---
Provider - Provider Date of Admission: 06/06/18 03:17 Attending physician: Josue Lora Jr, MD Time Spent in preparation of Discharge (in minutes): 35 Diagnosis - Discharge Diagnosis (1) Cellulitis of left lower leg Status: Resolved (2) Alcohol use disorder Status: Chronic (3) Alcohol intoxication Status: Resolved Hospital Course - Lab Results Lab Results: Micro Results 06/05/18 06:34 Blood Blood Culture - Preliminary NO GROWTH AFTER 48 HOURS 06/05/18 06:33 Blood Blood Culture - Preliminary NO GROWTH AFTER 48 HOURS Most Recent Lab Values WBC 5.7 K/uL (4.8-10.8) 06/07/18 06:33 RBC 4.70 Mil/uL (4.40-5.90) 06/07/18 06:33 Hgb 15.7 g/dL (12.0-18.0) 06/07/18 06:33 Hct 45.8 % (35.0-51.0) 06/07/18 06:33 MCV 97.4 fL (80.0-94.0) H 06/07/18 06:33 MCH 33.5 pg (27.0-31.0) H 06/07/18 06:33 MCHC 34.4 g/dL (33.0-37.0) 06/07/18 06:33 RDW 15.5 % (11.5-14.5) H 06/07/18 06:33 Plt Count 267 K/uL (130-400) 06/07/18 06:33 MPV 7.5 fL (7.2-11.7) 06/07/18 06:33 Neut % (Auto) 66.8 % (50.0-75.0) 06/07/18 06:33 Lymph % (Auto) 18.7 % (20.0-40.0) L 06/07/18 06:33 [place] % (Auto) 8.7 % (0.0-10.0) 06/07/18 06:33 Eos % (Auto) 5.4 % (0.0-4.0) H 06/07/18 06:33 Baso % (Auto) 0.4 % (0.0-2.0) 06/07/18 06:33 Neut # (Auto) 3.8 K/uL (1.8-7.0) 06/07/18 06:33 Lymph # (Auto) 1.1 K/uL (1.0-4.3) 06/07/18 06:33 [place] # (Auto) 0.5 K/uL (0.0-0.8) 06/07/18 06:33 Eos # (Auto) 0.3 K/uL (0.0-0.7) 06/07/18 06:33 Baso # (Auto) 0.0 K/uL (0.0-0.2) 06/07/18 06:33 PT 10.6 SECONDS (9.7-12.2) 06/05/18 14:00 INR 1.0 06/05/18 14:00 APTT 39 SECONDS (21-34) H 06/05/18 14:00 Sodium 140 mmol/L (132-148) 06/07/18 06:33 Potassium 3.7 mmol/L (3.6-5.2) 06/07/18 06:33 Chloride 102 mmol/L (98-107) 06/07/18 06:33 Carbon Dioxide 27 mmol/L (22-30) 06/07/18 06:33 Anion Gap 15 (10-20) 06/07/18 06:33 BUN 12 mg/dL (9-20) 06/07/18 06:33 Creatinine 0.9 mg/dL (0.8-1.5) 06/07/18 06:33 Est GFR ( Amer) > 60 06/07/18 06:33 Est GFR (Non-Af Amer) > 60 06/07/18 06:33 Random Glucose 92 mg/dL (75-110) 06/07/18 06:33 Calcium 9.5 mg/dl (8.6-10.4) 06/07/18 06:33 Phosphorus 3.6 mg/dL (2.5-4.5) 06/07/18 06:33 Magnesium 2.0 mg/dL (1.6-2.3) 06/07/18 06:33 Total Bilirubin 1.3 mg/dL (0.2-1.3) 06/07/18 06:33 AST 67 U/L (17-59) H 06/07/18 06:33 ALT 42 U/L (21-72) 06/07/18 06:33 Alkaline Phosphatase 87 U/L (38-126) 06/07/18 06:33 Total Protein 7.4 g/dL (6.3-8.3) 06/07/18 06:33 Albumin 4.3 g/dL (3.5-5.0) 06/07/18 06:33 Globulin 3.1 gm/dL (2.2-3.9) 06/07/18 06:33 Albumin/Globulin Ratio 1.4 (1.0-2.1) 06/07/18 06:33 Urine Color Yellow (YELLOW) 06/05/18 03:49 Urine Clarity Clear (Clear) 06/05/18 03:49 Urine pH 5.0 (5.0-8.0) 06/05/18 03:49 Ur Specific [place] 1.017 (1.003-1.030) 06/05/18 03:49 Urine Protein Negative mg/dL (NEGATIVE) 06/05/18 03:49 Urine Glucose (UA) Normal mg/dL (Normal) 06/05/18 03:49 Urine Ketones Negative mg/dL (NEGATIVE) 06/05/18 03:49 Urine Blood 1+ (NEGATIVE) H 06/05/18 03:49 Urine Nitrate Negative (NEGATIVE) 06/05/18 03:49 Urine Bilirubin Negative (NEGATIVE) 06/05/18 03:49 Urine Urobilinogen Normal mg/dL (0.2-1.0) 06/05/18 03:49 Ur Leukocyte Esterase Neg Ananth/uL (Negative) 06/05/18 03:49 Urine WBC (Auto) 1 /hpf (0-5) 06/05/18 03:49 Urine RBC (Auto) 1 /hpf (0-3) 06/05/18 03:49 Ur Squamous Epith Cells < 1 /hpf (0-5) 06/05/18 03:49 Hyaline Casts 0-2 /lpf (0-2) 06/05/18 03:49 Granular Casts (Auto) 8 /lpf (0-1) 06/05/18 03:49 Urine Opiates Screen Negative (NEGATIVE) 06/05/18 03:49 Urine Methadone Screen Negative (NEGATIVE) 06/05/18 03:49 Ur Barbiturates Screen Negative (NEGATIVE) 06/05/18 03:49 Ur Phencyclidine Scrn Negative (NEGATIVE) 06/05/18 03:49 Ur Amphetamines Screen Negative (NEGATIVE) 06/05/18 03:49 U Benzodiazepines Scrn Positive (NEGATIVE) 06/05/18 03:49 U Oth Cocaine Metabols Positive (NEGATIVE) H 06/05/18 03:49 U Cannabinoids Screen Negative (NEGATIVE) 06/05/18 03:49 Alcohol, Quantitative 289 mg/dl (0-10) H 06/05/18 01:05 - Hospital Course Hospital Course: HPI: Patient is a 42 year old male with past medical history of alcohol abuse, pancreatitis, hernia who presents to the hospital for worsening left knee pain. Patient is a poor historian. Patient states that last Saturday he was playing basketball when he fell. He was seen in the ED on 05/30/18 and Left knee and Left ankle x rays were negative for any fractures. Patient states that his left knee pain has been progressively getting worse for the past two days. He also reports swelling. 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 He states that the pain has started to impair his gait. Pain is only localized to the left knee. He tried taking Motrin at home with minimal relief. He denies headaches, dizziness, cp, palpitations, sob, chest pain, abdominal pain, urinary. Patient admitted for possible left leg cellulitis and alcohol abuse. Patient had left knee x ray which showed joint effusion, prepatellar bursitis probable. No fracture or lytic lesion. Mild osteoarthritis. Knee CT showed no evidence of acute displaced fracture nor dislocation There is mild anterior soft tissue swelling (see report). Suspect trace suprapatellar joint effusion. Bilateral venous doppler studies showed no evidence of superficial or deep vein thrombosis. Blood cultures were negative x 2. Patient treated with Zosyn and discharged on Doxycycline. For patient's alcohol abuse patient was given folic acid, multivitamins, thiamine. Patient was given Librium as needed for signs of alcohol withdrawal. CIWA protocol and seizure/ aspiration precautions were initiated. Upon discharge patient was afebrile with pain improving. This is a summary of the patient's hospital course, please see chart for de tails. Discharge Exam - Additional Findings Additional findings: - Constitutional Appears: Non-toxic, No Acute Distress - Head Exam Head Exam: ATRAUMATIC, NORMAL INSPECTION - Eye Exam Eye Exam: EOMI, Normal appearance - ENT Exam ENT Exam: Mucous Membranes Moist - Neck Exam Neck Exam: Normal Inspection - Respiratory Exam Respiratory Exam: Clear to Ausculation Bilateral, NORMAL BREATHING PATTERN. absent: Rales, Rhonchi, Wheezes, Respiratory Distress - Cardiovascular Exam Cardiovascular Exam: REGULAR RHYTHM, +S1, +S2 - GI/Abdominal Exam GI & Abdominal Exam: Soft, Normal Bowel Sounds. absent: Distended, Firm, Guard ing, Rigid, Tenderness - Extremities Exam Extremities Exam: Normal Capillary Refill. absent: Calf Tenderness, Full ROM (Left lower extremity: decreased ROM 2/2 to pain) Additional comments: (-) tremors on outstretched hands Left lower extremity: (+) moderate tendernous to palpation, erythematous, wth ecchymosis to the medial aspect of the knee, edematous; (+) healing abrasion, swelling extends slightly behind the knee, but not involving mid [place] or mid thigh (-) calf tenderness, (+) pedal pulse intact, (+) decreased sensation at the areas of swelling, (-) pallor, (-) cold to touch Right lower extremity: (+) healing abrasion, no calf tenderness, pedal pulse intact, sensation intact - Back Exam Back Exam: NORMAL INSPECTION - Neurological Exam Neurological Exam: Alert, Normal Gait, Oriented x3 - Psychiatric Exam Psychiatric exam: Normal Affect, Normal Mood - Skin Skin Exam: Dry, Normal Color, Warm Discharge Plan - Discharge Medications Prescriptions: Doxycycline Hyclate 100 mg PO BID 10 Days #20 cap - Follow Up Plan Condition: GOOD Disposition: HOME/ ROUTINE Additional Instructions: Patient is medically stable and safe for discharge home. Patient should start the following medications: Doxycycline 100 mg PO twice daily for 10 days. Patient should apply ice pack to the knee to reduce swelling, do not place ice pack directly on skin to avoid injury to the skin. Patient should follow up with his primary care doctor or Dr. Lora in 2 weeks. If symptoms worsen, or if fever (>100.4) develops, please return to the nearest emergency department for evaluation. Instructions explained to the patient, who understands and agrees with discharge plan. Referrals: Josue Lora Jr., MD [Medical Doctor] -
[2018-06-07] MEDS ORDERED: Influenza Vaccine 60 MCG/0.5 ML SYR (3 yr & up) IM ONE (08:45)
[2018-06-07] MEDS ORDERED: Pneumococcal 23-Valent Vaccine IM ONE (08:45)
[2018-06-07] MEDS: Multiple Vitamins Tab PO SCH (09:19)
[2018-06-07] MEDS: Enoxaparin 40 mg Syringe SC SCH (09:20)
== END 2018-06-07 11:25 | disposition home or self-care (01) | DRG 278 ==
LOC: C.ER 00:17 → C.3T 03:04 → OBSVTOIN 06-06 03:17
PROVIDERS: ADMIT Internal Medicine; ATTEND Internal Medicine
DX: L03.116 Cellulitis of left lower limb (principal); F10.129 Alcohol abuse with intoxication, unspecified; M17.12 Unilateral primary osteoarthritis, left knee; M70.42 Prepatellar bursitis, left knee; Y90.8 Blood alcohol level of 240 mg/100 ml or more; B35.3 Tinea pedis

== ENCOUNTER 2018-09-09 01:18 | Emergency (ER) | payer SELFPAY ==
[2018-09-09 01:28] VITALS: BMI 25.8
[2018-09-09 01:35] VITALS: TEMP 97.9
[2018-09-09] MEDS ORDERED: Sodium Chloride 0.9% 1,000 ML IV ONE (01:49)
[2018-09-09] MEDS ORDERED: Alum-Mag Hydrox-Simethicone Susp (30 mL) PO STA (01:49)
[2018-09-09] MEDS ORDERED: Sodium Chloride 0.9% 1,000 ML ONE (02:06)
[2018-09-09] MEDS ORDERED: Aluminum Hydroxide/Magnesium Hydroxide Susp (30 mL) ONE (02:06)
[2018-09-09 02:13] LABS: BASO % 0.5 % (0.0-2.0); EOS # 0.1 K/uL (0.0-0.7); EOS % 0.9 % (0.0-4.0); HEMOGLOBIN 16.8 g/dL (12.0-18.0); LYMPH # 1.5 K/uL (1.0-4.3); LYMPH % 25.1 % (20.0-40.0); MEAN CELL VOLUME 97.3 fL (80.0-94.0); MEAN CORPUSCULAR HGB CONC 33.9 g/dL (33.0-37.0); MEAN PLATELET VOLUME 7.1 fL (7.2-11.7); MONO # 0.4 K/uL (0.0-0.8); MONO % 6.8 % (0.0-10.0); NEUT # 4.1 K/uL (1.8-7.0); NEUT % 66.7 % (50.0-75.0); RBC 5.09 Mil/uL (4.40-5.90); RED CELL DISTRIBUTION WIDTH 14.5 % (11.5-14.5); WHITE BLOOD COUNT 6.1 K/uL (4.8-10.8)
[2018-09-09 02:28] LABS: ALB/GLOB RATIO 1.6 (1.0-2.1); ALBUMIN 5.1 g/dL (3.5-5.0); ALT/SGPT 30 U/L (21-72); AST/SGOT 33 U/L (17-59); BLOOD UREA NITROGEN 10 mg/dL (9-20); CALCIUM 9.1 mg/dl (8.6-10.4); GFR NON-AFRICAN AMERICAN > 60; LIPASE 188 U/L (23-300)
--- NOTE | 2018-09-09 02:53 | C.PDOC ---
History Of Present Illness 42 year old male with history of alcoholism presents to the ED complaining of indigestion. Reports he was eating pork, rice and beans and drinking beer at a [employer] when he felt nauseous and vomited. Reports he drank another beer and v omited again. Time Seen by Provider: 09/09/18 01:44 Chief Complaint (Nursing): Abdominal Pain History Per: Patient History/Exam Limitations: no limitations Onset/Duration Of Symptoms: Hrs Current Symptoms Are (Timing): Still Present Context: Food Location Of Pain/Discomfort: Epigastric Radiation Of Pain To:: None Quality Of Discomfort: "Pain" Associated Symptoms: Nausea, Vomiting. denies: Fever, Chills, Diarrhea, Back P ain, Chest Pain Past Medical History Reviewed: Historical Data, Nursing Documentation, Vital Signs Vital Signs: Last Vital Signs Temp 97.9 F 09/09/18 01:29 Pulse 115 H 09/09/18 01:29 Resp 19 09/09/18 01:29 BP 136/96 H 09/09/18 01:29 Pulse Ox 98 09/09/18 01:29 - Medical History PMH: Hiatal Hernia, Pancreatitis Denies: Diabetes, Hepatitis, HIV, HTN, Seizures, Sexually Transmitted Disease Surgical History: No Surg Hx - [facility] Procedures DETOXIFICATION SERVICES FOR SUBSTANCE ABUSE TREATMENT (05/21/18) GROUP CARTON PACKAGING MACHINE OPERATOR FOR SUBSTANCE ABUSE TREATMENT, PSYCHOEDUCATION (05/21/18) INDIV PSYCHOTHERAPY FOR SUBSTANCE ABUSE TREATMENT, SUPPORT (05/21/18) Family History: States: No Known Family Hx - Social History Hx Alcohol Use: Yes Hx Substance Use: Yes - Immunization History Hx Tetanus Toxoid Vaccination: Yes (6 years) Hx Influenza Vaccination: No Hx Pneumococcal Vaccination: No Review Of Systems Except As Marked, All Systems Reviewed And Found Negative. Constitutional: Negative for: Fever, Chills Cardiovascular: Negative for: Chest Pain Respiratory: Negative for: Shortness of Breath Gastrointestinal: Positive for: Nausea, Vomiting, Abdominal Pain. Negative for: Diarrhea Genitourinary: Negative for: Dysuria, Hematuria Physical Exam - Physical Exam Appears: Non-toxic, No Acute Distress Skin: Warm, Dry, No Rash Head: Normacephalic Eye(s): bilateral: Normal Inspection Nose: Normal Oral Mucosa: Moist Neck: Supple Chest: Symmetrical Cardiovascular: Rhythm Regular Respiratory: Normal Breath Sounds, No Rales, No Rhonchi, No Wheezing Gastrointestinal/Abdominal: Soft, Tenderness (epigastric tenderness), No Guarding, No Rebound Neurological/Psych: Oriented x3, Normal Speech Gait: Steady ED Course And Treatment - Laboratory Results Result Diagrams: 09/09/18 02:10 09/09/18 02:10 Lab Interpretation: Normal (lipase neg, etoh 152) O2 Sat by Pulse Oximetry: 98 (RA) Pulse Ox Interpretation: Normal - Radiology CXR: Interpreted by Me CXR Interpretation: Yes: No Acute Disease - Other Rad abd x 2 X-Ray: Interpreted by Me (normal stool/gas, no FA) Reevaluation Time: 03:03 Reassessment Condition: Improved Medical Decision Making Medical Decision Making: Impression: food indigestion Plan - XR abdomen - CXR - Bloodwork - Zofran 4mg PO - Protonix 40mg IVP - Maalox 30ml PO XR of abdomen shows no pancreatitis or no FA/Obst. improved with ED tx Disposition Doctor Will See Patient In The: Office Counseled Patient/Family Regarding: Studies Performed, Diagnosis - Disposition Referrals: Alcoholics Anonymous [Outside] [facility] [Outside] [facility] [Outside] [facility] [Outside] [facility] [Outside] Disposition: HOME/ ROUTINE Disposition Time: 03:04 Condition: GOOD Additional Instructions: sigue Pepcid 20 mg en la noche o' Protonix 40 mg en la manana para bajar el acides del estomago Sigue con del toro medico o' con la [facility] Sigue con AA- adriano de abusar el alcohol Instructions: Alcohol Use - When Is Drinking a Problem?, Dyspepsia Forms: [facility] (Lao) Print Language: WALLISIAN - Clinical Impression Clinical Impression: Alcohol abuse, Indigestion - Scribe Statement The provider has reviewed the documentation as recorded by the Scribnicki Jordan All medical record entries made by the Scribe were at my direction and personally dictated by me. I have reviewed the chart and agree that the record accurately reflects my personal performance of the history, physical exam, medical decision making, and the department course for this patient. I have also personally directed, reviewed, and agree with the discharge instructions and disposition.
[2018-09-09 03:56] VITALS: BP 124/89; PULSE 99; RESP 18
[2018-09-09 05:28] VITALS: O2SAT 98
--- NOTE | 2018-09-09 10:40 | RAD ---
Date of service: 09/09/2018 PROCEDURE: Radiographs of the chest and abdomen (obstructive series) HISTORY: abd pain COMPARISON: None available. TECHNIQUE: AP radiograph of the chest, with upright and supine radiographs of the abdomen. FINDINGS: CHEST: Heart size appears within normal limits. No focal consolidation, significant pleural effusion, or definite pneumothorax. Scattered nodular opacities, probable calcified granulomas, right salena thorax. Please note that chest x-ray has limited sensitivity for the detection of pulmonary masses. ABDOMEN AND PELVIS: Elevation right hemidiaphragm. Nonspecific bowel gas pattern. No definite free air. No acute osseous abnormality is detected. IMPRESSION: No focal consolidation. Scattered nodular opacities noted within the right hemithorax, favored to represent calcified granulomas. Nonobstructive bowel gas pattern.
== END 2018-09-09 04:06 | disposition home or self-care (01) ==
LOC: C.ER 01:18
DX: F10.10 Alcohol abuse, uncomplicated (principal); K30 Functional dyspepsia
CPT/HCPCS: 74022; 80053; 83690; 85025; 96361; 96374; 96375; 99284; C9113; G0480; J2405; J7030

== ENCOUNTER 2018-10-16 18:28 | Emergency (ER) | payer SELFPAY ==
[2018-10-16 18:28] VITALS: BMI 25.8
[2018-10-16 19:08] VITALS: RESP 20; TEMP 98; O2SAT 96
[2018-10-16 20:25] VITALS: BP 120/77; PULSE 108
--- NOTE | 2018-10-16 20:47 | C.PDOC ---
History Of Present Illness 42 y/o male presents to the ER requesting detox from ETOH. Patient states that he drinks everyday. Patient denies having suicidal ideation, homicidal ideation, and active physical complaints. Time Seen by Provider: 10/16/18 19:21 Chief Complaint (Nursing): Substance Abuse History Per: Patient History/Exam Limitations: no limitations Past Medical History Reviewed: Historical Data, Nursing Documentation, Vital Signs Vital Signs: Last Vital Signs Temp 98 F 10/16/18 19:04 Pulse 108 H 10/16/18 20:24 Resp 20 10/16/18 20:24 BP 120/77 10/16/18 20:24 Pulse Ox 96 10/16/18 20:24 - Medical History PMH: Hiatal Hernia, Pancreatitis Denies: Diabetes, Hepatitis, HIV, HTN, Seizures, Sexually Transmitted Disease Surgical History: No Surg Hx - [facility] Procedures DETOXIFICATION SERVICES FOR SUBSTANCE ABUSE TREATMENT (05/21/18) GROUP NEEDLE SETTER FOR SUBSTANCE ABUSE TREATMENT, PSYCHOEDUCATION (05/21/18) INDIV PSYCHOTHERAPY FOR SUBSTANCE ABUSE TREATMENT, SUPPORT (05/21/18) Family History: States: No Known Family Hx - Social History Hx Alcohol Use: Yes Hx Substance Use: Yes - Immunization History Hx Tetanus Toxoid Vaccination: Yes (6 years) Hx Influenza Vaccination: No Hx Pneumococcal Vaccination: No Review Of Systems Constitutional: Negative for: Fever, Chills Psych: Negative for: Suicidal ideation Physical Exam - Physical Exam Appears: Non-toxic, No Acute Distress Skin: Warm, Dry Head: Atraumatic, Normacephalic Eye(s): bilateral: Normal Inspection Oral Mucosa: Moist Neck: Supple Cardiovascular: Rhythm Regular Respiratory: Normal Breath Sounds, No Rales, No Rhonchi, No Wheezing Gastrointestinal/Abdominal: Soft, No Tenderness, No Guarding, No Rebound Neurological/Psych: Oriented x3, Normal Speech, Normal Cognition Gait: Steady ED Course And Treatment O2 Sat by Pulse Oximetry: 96 (RA) Pulse Ox Interpretation: Normal Medical Decision Making Medical Decision Making: no detox beds available.pt given list of detox programs., ambulates with steady gait. Disposition Counseled Patient/Family Regarding: Diagnosis, Need For Followup - Disposition Referrals: Alcoholics Anonymous [Outside] Disposition: HOME/ ROUTINE Disposition Time: 20:47 Condition: GOOD Forms: Gen Discharge Inst Nicaraguan, [facility] (Nicaraguan) - Clinical Impression Clinical Impression: Alcohol abuse - PA / WIRE MESH FILTER FABRICATOR / Resident Statement MD/DO has reviewed & agrees with the documentation as recorded. - Scribe Statement The provider has reviewed the documentation as recorded by the Emmyibnicki Nichols Provider Attestation All medical record entries made by the Emmyibnicki were at my direction and personally dictated by me. I have reviewed the chart and agree that the record accurately reflects my personal performance of the history, physical exam, medical decision making, and the department course for this patient. I have also personally directed, reviewed, and agree with the discharge instructions and disposition.
== END 2018-10-16 20:53 | disposition home or self-care (01) ==
LOC: C.ER 18:28
DX: F10.10 Alcohol abuse, uncomplicated (principal); Y90.9 Presence of alcohol in blood, level not specified

== ENCOUNTER 2018-10-17 13:02 | Emergency (ER) | payer OTHER ==
[2018-10-17 13:07] VITALS: BMI 22.1
[2018-10-17 13:09] VITALS: RESP 18; O2SAT 96
[2018-10-17 14:28] LABS: BASO # 0.1 K/uL (0.0-0.2); BASO % 1.2 % (0.0-2.0); EOS # 0.2 K/uL (0.0-0.7); EOS % 4.4 % (0.0-4.0); HEMOGLOBIN 15.7 g/dL (12.0-18.0); LYMPH # 1.6 K/uL (1.0-4.3); LYMPH % 39.7 % (20.0-40.0); MEAN CELL VOLUME 97.4 fL (80.0-94.0); MEAN CORPUSCULAR HEMOGLOBIN 32.5 pg (27.0-31.0); MEAN CORPUSCULAR HGB CONC 33.4 g/dL (33.0-37.0); MEAN PLATELET VOLUME 7.1 fL (7.2-11.7); MONO # 0.3 K/uL (0.0-0.8); MONO % 8.5 % (0.0-10.0); NEUT # 1.9 K/uL (1.8-7.0); NEUT % 46.2 % (50.0-75.0); NRBC % 0.1 % (0.0-2.0); RBC 4.84 Mil/uL (4.40-5.90); RED CELL DISTRIBUTION WIDTH 15.2 % (11.5-14.5); WHITE BLOOD COUNT 4.1 K/uL (4.8-10.8)
[2018-10-17 14:37] LABS: SQUAMOUS EPITHIAL < 1 /hpf (0-5); URINE BILIRUBIN NEGATIVE (NEGATIVE); URINE BLOOD 1+ (NEGATIVE); URINE CLARITY Clear (Clear); URINE COLOR Yellow (YELLOW); URINE GLUCOSE (UA) NORMAL (Normal); URINE LEUKOCYTE ESTERASE NEG Leu/uL (Negative); URINE PROTEIN 2+ mg/dL (NEGATIVE); URINE UROBILINOGEN NORMAL mg/dL (0.2-1.0)
[2018-10-17 14:48] LABS: ALB/GLOB RATIO 1.8 (1.0-2.1); ALT/SGPT 24 U/L (21-72); AST/SGOT 52 U/L (17-59); BLOOD UREA NITROGEN 15 mg/dL (9-20); CALCIUM 8.6 mg/dl (8.6-10.4); GFR NON-AFRICAN AMERICAN > 60; LIPASE 379 U/L (23-300)
[2018-10-17 15:00] LABS: BARBITURATES, UR NEGATIVE (NEGATIVE); BENZODIAZEPINES, UR NEGATIVE (NEGATIVE); OPIATES, UR NEGATIVE (NEGATIVE); PHENCYCLIDINE, UR NEGATIVE (NEGATIVE)
[2018-10-17 15:46] VITALS: BP 152/79; PULSE 103; TEMP 98.3
--- NOTE | 2018-10-17 16:12 | C.PDOC ---
History Of Present Illness 42-year-old male presents to the ED requesting alcohol and cocaine detox. Patient admits to drinking alcohol daily, and states his last drink was around 20 to 30 minutes prior to ED arrival. Patient reports his last cocaine use was a round 2 to 3 days ago. Patient also reports a history of pancreatitis and is complaining of epigastric abdominal pain. He denies fever, chills, vomiting, diarrhea, chest pain, shortness of breath, suicidal/homicidal ideation. Time Seen by Provider: 10/17/18 13:09 Chief Complaint (Nursing): Substance Abuse History Per: Patient History/Exam Limitations: no limitations Onset/Duration Of Symptoms: Hrs Current Symptoms Are (Timing): Still Present Modifying Factor(s): Alcohol, Cocaine Associated Symptoms: denies: Suicidal Thoughts, Suicidal Plan Involuntary Hold By: None Recent travel outside of the [place]: No Additional History Per: Patient Past Medical History Reviewed: Historical Data, Nursing Documentation, Vital Signs Vital Signs: Last Vital Signs Temp 98.3 F 10/17/18 15:45 Pulse 103 H 10/17/18 15:45 Resp 18 10/17/18 15:45 BP 152/79 H 10/17/18 15:45 Pulse Ox 96 10/17/18 15:45 - Medical History PMH: Hiatal Hernia, Pancreatitis Denies: Diabetes, Hepatitis, HIV, HTN, Seizures, Sexually Transmitted Disease Surgical History: No Surg Hx - [facility] Procedures DETOXIFICATION SERVICES FOR SUBSTANCE ABUSE TREATMENT (05/21/18) GROUP CLOTH CALENDER FOR SUBSTANCE ABUSE TREATMENT, PSYCHOEDUCATION (05/21/18) INDIV PSYCHOTHERAPY FOR SUBSTANCE ABUSE TREATMENT, SUPPORT (05/21/18) Family History: States: Unknown Family Hx - Social History Hx Alcohol Use: Yes Hx Substance Use: Yes (cocaine) - Immunization History Hx Tetanus Toxoid Vaccination: Yes (6 years) Hx Influenza Vaccination: No Hx Pneumococcal Vaccination: No Review Of Systems Constitutional: Negative for: Fever, Chills Cardiovascular: Negative for: Chest Pain Respiratory: Negative for: Shortness of Breath Gastrointestinal: Positive for: Abdominal Pain (epigastric ). Negative for: Vomiting, Diarrhea Psych: Positive for: Other (alcohol and cocaine detox ). Negative for: Suicidal ideation Physical Exam - Physical Exam Appears: Non-toxic, No Acute Distress, Other (comfortable, mildly intoxicated, malodorous ) Skin: Normal Color, Warm, Dry Head: Atraumatic, Normacephalic Eye(s): bilateral: Normal Inspection Oral Mucosa: Moist Neck: Supple Chest: Symmetrical, No Deformity, No Tenderness Cardiovascular: Rhythm Regular, No Murmur Respiratory: Normal Breath Sounds, No Rales, No Rhonchi, No Wheezing Gastrointestinal/Abdominal: Soft, Tenderness (mild, epigastric ), No Guarding, No Rebound, No Other (Boggs's sign ) Extremity: Normal ROM, Capillary Refill (less than 2 seconds ) Neurological/Psych: Oriented x3, Normal Speech, Normal Cognition, No Other (tremors ) ED Course And Treatment - Laboratory Results Result Diagrams: 10/17/18 14:25 10/17/18 14:25 Lab Results: Total Bilirubin 0.8 mg/dL (0.2-1.3) 10/17/18 14:25 AST 52 U/L (17-59) 10/17/18 14:25 ALT 24 U/L (21-72) 10/17/18 14:25 Alkaline Phosphatase 84 U/L (38-126) 10/17/18 14:25 Total Protein 7.9 g/dL (6.3-8.3) 10/17/18 14:25 Albumin 5.0 g/dL (3.5-5.0) 10/17/18 14:25 Globulin 2.8 gm/dL (2.2-3.9) 10/17/18 14:25 Albumin/Globulin Ratio 1.8 (1.0-2.1) 10/17/18 14:25 Lipase 379 U/L (23-300) H 10/17/18 14:25 Urine Color Yellow (YELLOW) 10/17/18 14:25 Urine Clarity Clear (Clear) 10/17/18 14:25 Urine pH 5.0 (5.0-8.0) 10/17/18 14:25 Ur Specific [place] 1.027 (1.003-1.030) 10/17/18 14:25 Urine Protein 2+ mg/dL (NEGATIVE) H 10/17/18 14:25 Urine Glucose (UA) Normal mg/dL (Normal) 10/17/18 14:25 Urine Ketones Negative mg/dL (NEGATIVE) 10/17/18 14:25 Urine Blood 1+ (NEGATIVE) H 10/17/18 14:25 Urine Nitrate Negative (NEGATIVE) 10/17/18 14:25 Urine Bilirubin Negative (NEGATIVE) 10/17/18 14:25 Urine Urobilinogen Normal mg/dL (0.2-1.0) 10/17/18 14:25 Ur Leukocyte Esterase Neg Ananth/uL (Negative) 10/17/18 14:25 Urine WBC (Auto) 1 /hpf (0-5) 10/17/18 14:25 Urine RBC (Auto) 1 /hpf (0-3) 10/17/18 14:25 Ur Squamous Epith Cells < 1 /hpf (0-5) 10/17/18 14:25 O2 Sat by Pulse Oximetry: 96 (on RA) Pulse Ox Interpretation: Normal Progress Note: bloodwork and urinalysis ordered and reviewed. Pepcid PO given. 4:10PM- As per crisis counselor, patient does not meet criteria for inpatient de tox admission. He has been cleared for discharge from psych/crisis standpoint. Disposition Counseled Patient/Family Regarding: Studies Performed, Diagnosis, Need For Followup, Rx Given - Disposition Referrals: [facility] [Outside] Disposition: HOME/ ROUTINE Disposition Time: 16:10 Condition: STABLE Additional Instructions: FOLLOW UP IN THE MEDICAL CLINIC IN 1-2 DAYS DRINK PLENTY OF WATER USE PAIN MEDICATION NEEDED RETURN TO EMERGENCY ROOM IF YOUR SYMPTOMS BECOME WORSE SEGUIR EN LA CLNICA MDICA EN 1-2 PATHAK BEBER ABUNDANTE AGUA UTILICE MEDICAMENTOS PARA EL DOLOR SEGN LO NECESARIO VUELVA A LA FRANNIE DE EMERGENCIA SI MARIPOSA SNTOMAS SE HACEN PEOR Prescriptions: traMADol [Ultram] 50 mg PO BID PRN #12 tab PRN Reason: pain Instructions: Alcohol Abuse and Alcoholism (DC), Polysubstance Abuse (DC) Forms: [employer] (North Korean) Print Language: TURKMEN - Clinical Impression Clinical Impression: Cocaine abuse, Alcohol abuse, Elevated lipase - Scribe Statement The provider has reviewed the documentation as recorded by the Scribe (Mesha Arguello) Provider Attestation: All medical record entries made by the Scribe were at my direction and personally dictated by me. I have reviewed the chart and agree that the record accurately reflects my personal performance of the history, physical exam, medical decision making, and the department course for this patient. I have also personally directed, reviewed, and agree with the discharge instructions and disposition.
== END 2018-10-17 16:23 | disposition home or self-care (01) ==
LOC: C.ER 13:02
DX: F14.10 Cocaine abuse, uncomplicated (principal); F10.10 Alcohol abuse, uncomplicated; R74.8 Abnormal levels of other serum enzymes

== ENCOUNTER 2018-11-10 23:40 | Emergency (ER) | payer OTHER ==
[2018-11-10 23:40] VITALS: BMI 22.1
[2018-11-10 23:50] VITALS: RESP 20
--- NOTE | 2018-11-11 01:05 | C.PDOC ---
History Of Present Illness 42 year old male presents to the ED c/o left leg pain. Patient inebriated refused to answer any questions. Patient shows no signs of trauma, injury, denies SI/HI. Time Seen by Provider: 11/11/18 01:05 Chief Complaint (Nursing): Lower Extremity Problem/Injury History Per: Patient History/Exam Limitations: intoxication Onset/Duration Of Symptoms: Days Current Symptoms Are (Timing): Still Present Recent travel outside of the [place]: No Additional History Per: Patient Past Medical History Reviewed: Historical Data, Nursing Documentation, Vital Signs Vital Signs: Last Vital Signs Temp 97.9 F 11/10/18 23:47 Pulse 136 H 11/10/18 23:47 Resp 20 11/10/18 23:47 BP 124/90 11/10/18 23:47 Pulse Ox 94 L 11/10/18 23:47 - Medical History PMH: Hiatal Hernia, Pancreatitis Denies: Diabetes, Hepatitis, HIV, HTN, Seizures, Sexually Transmitted Disease Surgical History: No Surg Hx - [facility] Procedures DETOXIFICATION SERVICES FOR SUBSTANCE ABUSE TREATMENT (05/21/18) GROUP MEDICAL ADMINISTRATOR FOR SUBSTANCE ABUSE TREATMENT, PSYCHOEDUCATION (05/21/18) INDIV PSYCHOTHERAPY FOR SUBSTANCE ABUSE TREATMENT, SUPPORT (05/21/18) Family History: States: Unknown Family Hx - Social History Hx Alcohol Use: Yes Hx Substance Use: Yes (cocaine) - Immunization History Hx Tetanus Toxoid Vaccination: Yes (6 years) Hx Influenza Vaccination: No Hx Pneumococcal Vaccination: No Review Of Systems Constitutional: Negative for: Fever, Chills Cardiovascular: Negative for: Chest Pain Respiratory: Negative for: Shortness of Breath Musculoskeletal: Positive for: Leg Pain Skin: Negative for: Rash Neurological: Negative for: Weakness, Numbness, Headache, Dizziness Physical Exam - Physical Exam Appears: Non-toxic, No Acute Distress Skin: Warm, Dry Head: Normacephalic Eye(s): bilateral: Normal Inspection Neck: Supple Cardiovascular: Rhythm Regular Respiratory: No Rales, No Rhonchi, No Wheezing Extremity: Bilateral: Atraumatic, Normal Color And Temperature, Normal ROM Neurological/Psych: Oriented x3, Normal Speech, Normal Cognition Gait: Steady ED Course And Treatment O2 Sat by Pulse Oximetry: 94 Pulse Ox Interpretation: Normal - Other Rad ankle X-Ray: Interpreted by Me, Viewed By Me Interpretation: no fx or disloaction Reevaluation Time: 05:28 Reassessment Condition: Improved Disposition Counseled Patient/Family Regarding: Studies Performed, Diagnosis, Need For Followup - Disposition Disposition: HOME/ ROUTINE Disposition Time: 01:05 Condition: FAIR Instructions: Alcohol Abuse and Alcoholism (DC), Ankle Sprain (DC) Forms: [facility] (Telugu) - Clinical Impression Clinical Impression: Alcohol abuse, Ankle sprain - Scribe Statement The provider has reviewed the documentation as recorded by the Scribe Sunil Gutierrez All medical record entries made by the Emmyibe were at my direction and personally dictated by me. I have reviewed the chart and agree that the record accurately reflects my personal performance of the history, physical exam, medical decision making, and the department course for this patient. I have also personally directed, reviewed, and agree with the discharge instructions and disposition.
[2018-11-11 05:57] VITALS: BP 123/70; PULSE 88; TEMP 98.1; O2SAT 96
--- NOTE | 2018-11-11 08:16 | RAD ---
Date of service: 11/11/2018 PROCEDURE: Left Ankle Radiographs. HISTORY: fall COMPARISON: 10/31/2017 FINDINGS: BONES: Faint ossification-suspect flake osseous avulsion bordering inferior fibula-not apparent on prior study-acute subacute flake after osseous avulsion fracture here suspect. Donor site not clearly delineated. Soft tissue swelling mostly inferior to this JOINTS: No osteoarthritis. Ankle mortise maintained. Talar dome intact SOFT TISSUES: Soft tissue swelling about the ankle joint anterior posterior and lateral OTHER FINDINGS: None. IMPRESSION: Faint ossification-suspect flake osseous avulsion bordering inferior fibula-not apparent on prior study-acute subacute flake after osseous avulsion fracture here suspect. Donor site not clearly delineated. Soft tissue swelling mostly inferior to this Comments: Study marked for PA review .
== END 2018-11-11 05:57 | disposition home or self-care (01) ==
LOC: C.ER 23:40
DX: S93.402A Sprain of unspecified ligament of left ankle, initial encounter (principal); X58.XXXA Exposure to other specified factors, initial encounter; F10.10 Alcohol abuse, uncomplicated; Y90.9 Presence of alcohol in blood, level not specified

== ENCOUNTER 2018-11-12 22:40 | Emergency (ER) | payer OTHER ==
[2018-11-12 22:41] VITALS: BMI 22.1
--- NOTE | 2018-11-12 23:18 | C.PDOC ---
History Of Present Illness 42 year old homeless male with Hx of ETOH abuse presents requesting detox. Patient denies leg pain at this time, appear intoxicated. Patient seen numerous times for similar. No other complaints at this time. Time Seen by Provider: 11/12/18 22:58 Chief Complaint (Nursing): Substance Abuse History Per: Patient History/Exam Limitations: no limitations Onset/Duration Of Symptoms: Hrs Current Symptoms Are (Timing): Still Present Suicide/Self Injury Attempted (Context): None Modifying Factor(s): Alcohol Involuntary Hold By: None Recent travel outside of the [place]: No Past Medical History Reviewed: Historical Data, Nursing Documentation, Vital Signs Vital Signs: Last Vital Signs Temp 97.6 F 11/12/18 22:51 Pulse 112 H 11/12/18 22:51 Resp 18 11/12/18 22:51 BP 126/83 11/12/18 22:51 Pulse Ox 97 11/12/18 22:51 - Medical History PMH: Hiatal Hernia, Pancreatitis Denies: Diabetes, Hepatitis, HIV, HTN, Seizures, Sexually Transmitted Disease - [facility] Procedures DETOXIFICATION SERVICES FOR SUBSTANCE ABUSE TREATMENT (05/21/18) GROUP BUSINESS EMPLOYMENT SPECIALIST FOR SUBSTANCE ABUSE TREATMENT, PSYCHOEDUCATION (05/21/18) INDIV PSYCHOTHERAPY FOR SUBSTANCE ABUSE TREATMENT, SUPPORT (05/21/18) Family History: States: Unknown Family Hx - Social History Hx Alcohol Use: Yes Hx Substance Use: Yes (cocaine) - Immunization History Hx Tetanus Toxoid Vaccination: Yes (6 years) Hx Influenza Vaccination: No Hx Pneumococcal Vaccination: No Review Of Systems Constitutional: Negative for: Fever, Chills Cardiovascular: Negative for: Chest Pain, Palpitations Respiratory: Negative for: Cough, Shortness of Breath Gastrointestinal: Negative for: Nausea, Vomiting Neurological: Negative for: Weakness, Numbness Physical Exam - Physical Exam Appears: Non-toxic, Other (ETOH on breath, no sign of injury) Skin: Normal Color, Warm, Dry Head: Atraumatic, Normacephalic Eye(s): bilateral: Normal Inspection Oral Mucosa: Moist Chest: Symmetrical, No Tenderness Cardiovascular: Rhythm Regular Respiratory: Normal Breath Sounds, No Rales, No Rhonchi, No Wheezing Gastrointestinal/Abdominal: Soft, No Tenderness Neurological/Psych: Oriented x3, Normal Speech ED Course And Treatment O2 Sat by Pulse Oximetry: 97 (Room air) Pulse Ox Interpretation: Normal Medical Decision Making Medical Decision Making: no detox beds avail. pt observed overnight in nad. slept entire ed course. in am awake alert steady gati no medical complaint. stable for dc Disposition - Disposition Referrals: Alcoholics Anonymous [Outside] Disposition: HOME/ ROUTINE Disposition Time: 04:30 Condition: STABLE Additional Instructions: return to er with worsening symptoms or concerns. Instructions: Alcohol Abuse and Alcoholism (DC) Forms: [facility] (Montenegrin) - Clinical Impression Clinical Impression: Alcohol abuse - Scribe Statement The provider has reviewed the documentation as recorded by the Scribe Fernandez Montemayor All medical record entries made by the Scribe were at my direction and personally dictated by me. I have reviewed the chart and agree that the record accurately reflects my personal performance of the history, physical exam, medical decision making, and the department course for this patient. I have also personally directed, reviewed, and agree with the discharge instructions and disposition.
[2018-11-13 05:29] VITALS: BP 120/80; PULSE 90; RESP 16; TEMP 97.5; O2SAT 97
== END 2018-11-13 05:31 | disposition home or self-care (01) ==
LOC: C.ER 22:40
DX: F10.10 Alcohol abuse, uncomplicated (principal); Y90.9 Presence of alcohol in blood, level not specified

== ENCOUNTER 2018-11-27 15:51 | Emergency (ER) | payer OTHER ==
[2018-11-27 15:51] VITALS: BMI 22.1
[2018-11-27 16:05] VITALS: BP 137/92; PULSE 122; RESP 20; TEMP 98.7; O2SAT 96
--- NOTE | 2018-11-27 16:29 | C.PDOC ---
History Of Present Illness 43 year old male presents to ED requesting alcohol detox. Patient also complains of an ulcer to the back of his left ankle. Patient wears hightop sneakers that rub against that area. Patient states that he has been walking excessively because of anxiety related to his father's . Patient doesn't follow up for pres-screen. Patient denies fever, chills, nausea, vomiting, and abdominal pain. Time Seen by Provider: 11/27/18 16:21 Chief Complaint (Nursing): Substance Abuse History Per: Patient History/Exam Limitations: no limitations Onset/Duration Of Symptoms: Other (detox) Suicide/Self Injury Attempted (Context): None Modifying Factor(s): Alcohol Associated Symptoms: Anxiety Past Medical History Reviewed: Historical Data, Nursing Documentation, Vital Signs Vital Signs: Last Vital Signs Temp 98.7 F 11/27/18 16:03 Pulse 122 H 11/27/18 16:03 Resp 20 11/27/18 16:03 BP 137/92 H 11/27/18 16:03 Pulse Ox 96 11/27/18 16:03 - Medical History PMH: Hiatal Hernia, Pancreatitis Denies: Diabetes, Hepatitis, HIV, HTN, Seizures, Sexually Transmitted Disease Surgical History: No Surg Hx - [facility] Procedures DETOXIFICATION SERVICES FOR SUBSTANCE ABUSE TREATMENT (05/21/18) GROUP STATEMENT CLERKS SUPERVISOR FOR SUBSTANCE ABUSE TREATMENT, PSYCHOEDUCATION (05/21/18) INDIV PSYCHOTHERAPY FOR SUBSTANCE ABUSE TREATMENT, SUPPORT (05/21/18) Family History: States: Unknown Family Hx - Social History Hx Alcohol Use: Yes Hx Substance Use: No - Immunization History Hx Tetanus Toxoid Vaccination: Yes (6 years) Hx Influenza Vaccination: No Hx Pneumococcal Vaccination: No Review Of Systems Constitutional: Negative for: Fever, Chills, Weakness Gastrointestinal: Negative for: Nausea, Vomiting, Abdominal Pain Musculoskeletal: Positive for: Foot Pain (ulcer to the back of the left ankle) Neurological: Negative for: Weakness, Numbness, Dizziness Physical Exam - Physical Exam Appears: No Acute Distress, Other (alcohol on breath) Skin: Normal Color, Warm, Dry Head: Atraumatic, Normacephalic Neck: Normal ROM, Supple Chest: Symmetrical, No Deformity Respiratory: No Accessory Muscle Use Extremity: Other (2 cm shallow ulcer on the posterior left ankle on the achilles tendon, not penetrating the subcutaneous tissue) Neurological/Psych: Oriented x3, Normal Speech, Normal Cognition ED Course And Treatment O2 Sat by Pulse Oximetry: 96 (in RA) Progress Note: Re-evaluation. Discussed plan with patient who expresses understanding. All questions answered and there is agreement with the plan to discharge home with instructions. Patient stable for discharge. Return if symptoms persist or worsen. Medical Decision Making Medical Decision Making: seeking etoh detox, not available today small chronic ulcer posterior R achilles area from high-top sneakers not infected AGAIN instructed how to f/u with Detox for pre-screening. Disposition Doctor Will See Patient In The: Office Counseled Patient/Family Regarding: Studies Performed, Diagnosis - Disposition Referrals: Alcoholics Anonymous [Outside] [facility] [Outside] [facility] [Outside] [facility] [Outside] [facility] [Outside] Disposition: HOME/ ROUTINE Disposition Time: 16:29 Condition: GOOD Additional Instructions: mantiene la ulcera limpio y cubierto para que se ace Sigue buscando Detox del Alcohol- [place] or PRESENT con nuestro servicios de Crisis para PRESCRENNING Sigue con AA Instructions: Alcohol Use - When Is Drinking a Problem?, Foot Care for Diabetics Forms: [facility] (Mongolian) Print Language: MALAY - Clinical Impression Clinical Impression: Alcohol abuse, Chronic ulcer of ankle - Scribe Statement The provider has reviewed the documentation as recorded by the Scribe (Theresa Gonzalez) All medical record entries made by the Scribe were at my direction and personally dictated by me. I have reviewed the chart and agree that the record accurately reflects my personal performance of the history, physical exam, medical decision making, and the department course for this patient. I have also personally directed, reviewed, and agree with the discharge instructions and disposition.
[2018-11-27] MEDS ORDERED: Bacitracin 500 Units/gm Oint Foilpak UD ONE (16:40)
== END 2018-11-27 16:39 | disposition home or self-care (01) ==
LOC: C.ER 15:51
DX: F10.10 Alcohol abuse, uncomplicated (principal); Y90.9 Presence of alcohol in blood, level not specified; L97.329 Non-pressure chronic ulcer of left ankle with unspecified severity